=== PATIENT | male | born 1945 | race Hispanic/Latino ===

== ENCOUNTER 2018-05-20 11:02 | Inpatient (IN) | payer MEDICARE ==
[2018-05-20 13:05] LABS: BASO # 0.1 K/uL (0.0-0.2); BASO % 0.6 % (0.0-2.0); EOS # 0.9 K/uL (0.0-0.7); EOS % 10.6 % (0.0-4.0); LYMPH # 1.5 K/uL (1.0-4.3); LYMPH % 17.4 % (20.0-40.0); MEAN CELL VOLUME 83.2 fL (80.0-94.0); MEAN CORPUSCULAR HEMOGLOBIN 27.1 pg (27.0-31.0); MEAN CORPUSCULAR HGB CONC 32.6 g/dL (33.0-37.0); MEAN PLATELET VOLUME 10.1 fL (7.2-11.7); MONO # 0.7 K/uL (0.0-0.8); MONO % 7.6 % (0.0-10.0); NEUT # 5.6 K/uL (1.8-7.0); NEUT % 63.8 % (50.0-75.0); RBC 2.57 Mil/uL (4.40-5.90); RED CELL DISTRIBUTION WIDTH 15.4 % (11.5-14.5); WHITE BLOOD COUNT 8.8 K/uL (4.8-10.8)
[2018-05-20 13:13] LABS: INR 1.2; PROTHROMBIN TIME 12.8 SECONDS (9.7-12.2)
--- NOTE | 2018-05-20 13:13 | RAD ---
Date of service: 05/20/2018 PROCEDURE: CHEST RADIOGRAPH, 1 VIEW HISTORY: SOB COMPARISON: None available. FINDINGS: LUNGS: Clear. PLEURA: No pneumothorax or pleural fluid seen. CARDIOVASCULAR: No aortic atherosclerotic calcification present. Normal. OSSEOUS STRUCTURES: No significant abnormalities. VISUALIZED UPPER ABDOMEN: Normal. OTHER FINDINGS: None. IMPRESSION: No active disease.
[2018-05-20 13:32] LABS: TROPONIN I 0.034 ng/mL (0.00-0.120)
[2018-05-20 13:37] LABS: ALB/GLOB RATIO 1.2 (1.0-2.1); ALBUMIN 3.7 g/dL (3.5-5.0); CALCIUM 7.2 mg/dl (8.6-10.4)
[2018-05-20] MEDS ORDERED: Calcium Gluconate 4.65 MEQ in Dextrose 5% In Water 100 ML IV STA (14:03)
--- NOTE | 2018-05-20 14:04 | C.PDOC ---
History Of Present Illness 72 y/o M with a PMHx of CKD, Anemia, HTN presents to the ED for evaluation for hemodialysis. He was sent by Dr. Greene his nephologist on 05/08/18 but states that he wanted to wait until after thanksgiving before coming. On admission to the ED his potassium was 6.7. Surgery is currently being consulted for peramcath placement. He reports chronic back pain and LUQ pain. He denies AVELAR, fever, chills, abdominal pain, nausea, vomit, diarrhea,chest pain, SOB, Numbness, tingling,and changes in gait. PMHX: CKD, Anemia, HTN, Stroke PSHX: Abdominal surgery Social: 50 pack year smoking Hx,Denies ETOH, lives at home with aunt <Charleen Muro - Last Filed: 05/20/18 15:04> <Randolph Mathew - Last Filed: 05/20/18 14:29> History Per: Patient <Charleen Muro - Last Filed: 05/20/18 15:04> Time Seen by Provider: 05/20/18 12:42 Chief Complaint (Nursing): Medical Clearance Past Medical History Vital Signs: Last Vital Signs Temp 98.5 F 05/20/18 11:27 Pulse 76 05/20/18 12:05 Resp 18 05/20/18 12:05 BP 210/85 H 05/20/18 12:05 Pulse Ox 96 05/20/18 12:05 - Medical History PMH: Anemia, HTN Denies: Chronic Kidney Disease - Social History Hx Alcohol Use: No Hx Substance Use: No - Immunization History Hx Influenza Vaccination: Yes Hx Pneumococcal Vaccination: Yes <Randolph Mathew - Last Filed: 05/20/18 14:29> Vital Signs: Last Vital Signs Temp 98.5 F 05/20/18 11:27 Pulse 81 05/20/18 14:25 Resp 18 05/20/18 14:25 BP 220/93 H 05/20/18 14:25 Pulse Ox 96 05/20/18 14:33 - Medical History PMH: Anemia, HTN, Chronic Kidney Disease - Social History Hx Tobacco Use: Yes (50 pack year hx ) <Charleen Muro - Last Filed: 05/20/18 15:04> Review Of Systems Constitutional: Negative for: Fever, Chills Gastrointestinal: Positive for: Abdominal Pain (LUQ). Negative for: Nausea, Vomiting Genitourinary: Positive for: Frequency. Negative for: Dysuria Neurological: Negative for: Weakness, Numbness, Change in Speech <Charleen Muro - Last Filed: 05/20/18 15:04> Physical Exam - Physical Exam Appears: Well, Non-toxic, No Acute Distress Skin: Warm, Dry Head: Atraumatic, Normacephalic Eye(s): bilateral: EOMI Cardiovascular: Rhythm Regular Respiratory: Normal Breath Sounds, No Rales, No Rhonchi, No Wheezing Gastrointestinal/Abdominal: Bowel Sounds, Soft, Tenderness (LUQ) <Charleen Muro - Last Filed: 05/20/18 15:04> ED Course And Treatment - Laboratory Results Result Diagrams: 05/20/18 12:57 05/20/18 12:57 Lab Interpretation: Abnormal (chronic microcytic anemia, ESRD with elev K+ 6.7 H,) ECG: Interpreted By Me ECG Rhythm: Sinus Rhythm ECG Interpretation: Normal Rate From EC (no peaked T^'s, no slower rhythm) O2 Sat by Pulse Oximetry: 96 Pulse Ox Interpretation: Normal - Radiology CXR: Interpreted by Me CXR Interpretation: Yes: No Acute Disease Reevaluation Time: 14:30 Reassessment Condition: Improved - Physician Consult Information Outcome Of Conversation: 1400: d/w Dr. Greene, PMD, ok to consult- will d/w Dr. Estrada for admission. d/w Dr. Rocha, Vasc Surg- ok to place HD line and plan for AV fistula. <Randolph Mathew E - Last Filed: 05/20/18 14:29> - Laboratory Results Result Diagrams: 05/20/18 12:57 05/20/18 12:57 <Charleen Muro - Last Filed: 05/20/18 15:04> Medical Decision Making Medical Decision Making: m microcytic anemia chronic blood tx ESRD HD cath and start HD Dr. Greene Proof Operator/PMD Hyperkalemia Calcium Gluconate given no acute EKG changes <Randolph Mathew E - Last Filed: 05/20/18 14:29> Disposition Doctor Will See Patient In The: Hospital Counseled Patient/Family Regarding: Studies Performed, Diagnosis - Disposition Disposition Time: 14:33 <Randolph Mathew - Last Filed: 05/20/18 14:29> <Charleen Muro - Last Filed: 05/20/18 15:04> - Disposition Disposition: HOSPITALIZED Condition: FAIR Forms: [facility] ([place]) - Clinical Impression Clinical Impression: ESRD needing dialysis, Chronic anemia
[2018-05-20] MEDS ORDERED: Calcium Gluconate 4.65 mEq/10 ml Inj ONE (14:14)
[2018-05-20] MEDS ORDERED: Nitroglycerin 2% Ointment Foilpak UD TOP STA (14:25)
[2018-05-20] MEDS ORDERED: Nitroglycerin 2% Ointment Foilpak UD TOP ONE (14:58)
[2018-05-20 15:08] LABS: SQUAMOUS EPITHIAL 1 /hpf (0-5); URINE BILIRUBIN NEGATIVE (NEGATIVE); URINE BLOOD NEGATIVE (NEGATIVE); URINE CLARITY Clear (Clear); URINE COLOR Straw (YELLOW); URINE GLUCOSE (UA) NORMAL (Normal); URINE HYALINE CAST 0-2 /lpf (0-2); URINE LEUKOCYTE ESTERASE NEG Leu/uL (Negative); URINE PROTEIN 2+ mg/dL (NEGATIVE); URINE UROBILINOGEN NORMAL mg/dL (0.2-1.0)
--- NOTE | 2018-05-20 15:17 | CP.PCM.CON ---
History of Present Illness - History of Present Illness History of Present Illness: Vascular Surgery: Dr. Rocha 72 y/o M with a PMHX of HTN, CKD, and anemia, presents to the ED for evaluation to start hemodyalysis. He was sent to the ER by Dr. Greene (nephrology) on 05/08 for HD eval, but states that he did not come until now because he did not want to miss [facility]. Upon admission to the ED his potassium is 6.7. He states that he has never received dialysis before. He reports chronic back pain and LUQ pain. He currently denies Headache, fever, chest pain, SOB, Nausea, Vomit, Diarrhea,numbness, and tingling in the extremities. PMHX: CKD, HTN, Anemia CVA PSHX: Abdominal Surgery (pt unsure what surgery) Social: 50 pack year smoker, denies ETOH, lives at home with aunt RADHA Review of Systems - Review of Systems All systems: reviewed and no additional remarkable complaints except (as per HPI) - Cardiovascular Cardiovascular: absent: Chest Pain - Respiratory Respiratory: As Per HPI. absent: Cough - Gastrointestinal Gastrointestinal: As Per HPI, Abdominal Pain Additional comments: LUQ - Genitourinary Genitourinary: As Per HPI - Neurological Neurological: absent: Abnormal Gait, Abnormal Hearing, Abnormal Speech Past Patient History - Past Social History Smoking Status: Former Smoker Alcohol: None Drugs: Denies - CARDIAC Hx Hypertension: Yes - PULMONARY Hx Respiratory Disorders: No - NEUROLOGICAL Hx Neurological Disorder: Yes HX Cerebrovascular Accident: Yes (RT side weakness) - HEENT Hx HEENT Problems: No - RENAL Hx Chronic Kidney Disease: No - ENDOCRINE/METABOLIC Hx Endocrine Disorders: No - HEMATOLOGICAL/ONCOLOGICAL Hx Blood Disorders: Yes Hx Anemia: Yes - MUSCULOSKELETAL/RHEUMATOLOGICAL Hx Musculoskeletal Disorders: No - GASTROINTESTINAL Hx Gastrointestinal Disorders: No - GENITOURINARY/GYNECOLOGICAL Hx Genitourinary Disorders: No - PSYCHIATRIC Hx Psychophysiologic Disorder: No Hx Substance Use: No - SURGICAL HISTORY Hx Surgeries: No - ANESTHESIA Hx Anesthesia: Yes Meds Allergies/Adverse Reactions: Allergies Allergy/AdvReac Type Severity Reaction Status Date / Time No Known Allergies Allergy Unverified 05/20/18 11:32 Physical Exam - Constitutional Appears: Well, No Acute Distress - Head Exam Head Exam: ATRAUMATIC, NORMOCEPHALIC - Eye Exam Eye Exam: EOMI - ENT Exam ENT Exam: Mucous Membranes Moist - Respiratory Exam Respiratory Exam: Clear to Auscultation Bilateral, NORMAL BREATHING PATTERN - Cardiovascular Exam Cardiovascular Exam: REGULAR RHYTHM, +S1, +S2 - GI/Abdominal Exam GI & Abdominal Exam: Normal Bowel Sounds, Soft - Extremities Exam Extremities exam: Positive for: pedal edema - Neurological Exam Neurological exam: Alert, Oriented x3 - Skin Skin Exam: Dry, Warm Results - Vital Signs Recent Vital Signs: Last Vital Signs Temp 98.5 F 05/20/18 11:27 Pulse 81 05/20/18 14:25 Resp 18 05/20/18 14:25 BP 220/93 H 05/20/18 14:25 Pulse Ox 98 05/20/18 14:25 - Labs Result Diagrams: 05/20/18 12:57 05/20/18 12:57 Labs: Laboratory Results - last 24 hr 05/20/18 05/20/18 05/20/18 12:57 12:57 12:57 WBC 8.8 RBC 2.57 L Hgb 7.0 L Hct 21.4 L MCV 83.2 MCH 27.1 MCHC 32.6 L RDW 15.4 H Plt Count 181 MPV 10.1 Neut % (Auto) 63.8 Lymph % (Auto) 17.4 L Power % (Auto) 7.6 Eos % (Auto) 10.6 H Baso % (Auto) 0.6 Neut # (Auto) 5.6 Lymph # (Auto) 1.5 Power # (Auto) 0.7 Eos # (Auto) 0.9 H Baso # (Auto) 0.1 PT 12.8 H INR 1.2 APTT 35 H Sodium 140 Potassium 6.7 H* Chloride 109 H Carbon Dioxide 17 L Anion Gap 21 H BUN 87 H Creatinine 9.6 H* Est GFR ( Amer) 7 Est GFR (Non-Af Amer) 5 Random Glucose 106 Calcium 7.2 L Total Bilirubin 0.4 AST 12 L ALT 17 L Alkaline Phosphatase 51 Troponin I 0.0340 NT-Pro-B Natriuret Pep 51958 H Total Protein 6.8 Albumin 3.7 Globulin 3.1 Albumin/Globulin Ratio 1.2 Urine Color Urine Clarity Urine pH Ur Specific [place] Urine Protein Urine Glucose (UA) Urine Ketones Urine Blood Urine Nitrate Urine Bilirubin Urine Urobilinogen Ur Leukocyte Esterase Urine WBC (Auto) Urine RBC (Auto) Ur Squamous Epith Cells Hyaline Casts Blood Type Blood Type Confirm Antibody Screen 05/20/18 05/20/18 13:15 15:00 WBC RBC Hgb Hct MCV MCH MCHC RDW Plt Count MPV Neut % (Auto) Lymph % (Auto) Power % (Auto) Eos % (Auto) Baso % (Auto) Neut # (Auto) Lymph # (Auto) Power # (Auto) Eos # (Auto) Baso # (Auto) PT INR APTT Sodium Potassium Chloride Carbon Dioxide Anion Gap BUN Creatinine Est GFR ( Amer) Est GFR (Non-Af Amer) Random Glucose Calcium Total Bilirubin AST ALT Alkaline Phosphatase Troponin I NT-Pro-B Natriuret Pep Total Protein Albumin Globulin Albumin/Globulin Ratio Urine Color Straw Urine Clarity Clear Urine pH 7.0 Ur Specific [place] 1.011 Urine Protein 2+ H Urine Glucose (UA) Normal Urine Ketones Negative Urine Blood Negative Urine Nitrate Negative Urine Bilirubin Negative Urine Urobilinogen Normal Ur Leukocyte Esterase Neg Urine WBC (Auto) < 1 Urine RBC (Auto) < 1 Ur Squamous Epith Cells 1 Hyaline Casts 0-2 Blood Type A POSITIVE Blood Type Confirm A POSITIVE Antibody Screen Negative Assessment & Plan - Assessment and Plan (Free Text) Assessment: 72M with CKD, for permacath eval for HD Plan: - OR for permacath - keep NPO - d/w Dr. Aj Muro
[2018-05-20] MEDS ORDERED: Dextrose 50% SYRINGE Inj (50 ml) IVP STA (15:38)
[2018-05-20] MEDS ORDERED: (Novolin R) Insulin Human Regular 100 units/ml vial IVP ONE (15:38)
[2018-05-20] MEDS ORDERED: (Novolin R) Insulin Human Regular 100 units/ml vial ONE (15:40)
[2018-05-20] MEDS ORDERED: ceFAZolin IV 1 gm in Dextrose 2 GM/100 ML BAG IVPB ONE (15:40)
[2018-05-20] MEDS ORDERED: Lidocaine Hydrochloride 10 ML INJ ONE (15:41)
[2018-05-20] MEDS ORDERED: HEPARIN-NS 5,000 UNITS/500 ML 5,000 UNIT/500 ML BAG IV ONE (15:41)
[2018-05-20] MEDS ORDERED: Dextrose 50% SYRINGE Inj (50 ml) ONE (15:41)
--- NOTE | 2018-05-20 15:53 | C.PDOC ---
History Of Present Illness 72 y/o Male with a PMHX of HTN, CKD, and severe anemia, was sent to the ER by Dr. Greene (nephrology) on 05/08 for hemodyalysis evaluation, but states that he did not come until now because he did not want to miss [facility]. Patient present today with complaints of chronic weakness and lethargy. Patient also has poor gait. Patient lives with his aunt that takes care of him. He currently denies Headache, fever, chest pain, SOB, Nausea, Vomit, Diarrhea,numbness, and tingling in the extremities. Time Seen by Provider: 05/20/18 12:42 Chief Complaint (Nursing): Medical Clearance History Per: Patient History/Exam Limitations: no limitations Onset/Duration Of Symptoms: Days Current Symptoms Are (Timing): Still Present Recent travel outside of the [place]: No Past Medical History Reviewed: Historical Data, Nursing Documentation, Vital Signs Vital Signs: Last Vital Signs Temp 98.5 F 05/20/18 11:27 Pulse 93 H 05/20/18 15:18 Resp 20 05/20/18 15:18 BP 183/84 H 05/20/18 15:18 Pulse Ox 94 L 05/20/18 15:18 - Medical History PMH: Anemia, HTN Family History: States: No Known Family Hx - Social History Hx Alcohol Use: No Hx Substance Use: No - Immunization History Hx Influenza Vaccination: Yes Hx Pneumococcal Vaccination: Yes Review Of Systems Constitutional: Negative for: Fever, Chills Gastrointestinal: Negative for: Nausea, Vomiting, Diarrhea Skin: Negative for: Rash Neurological: Positive for: Weakness. Negative for: Numbness, Headache Physical Exam - Physical Exam Appears: Non-toxic, No Acute Distress, Other (Pale. Pallid. ) Skin: Warm, Dry, No Rash Head: Atraumatic, Normacephalic Eye(s): bilateral: Conjunctiva Pale (Pallor ) Oral Mucosa: Moist Neck: Normal ROM, Supple Chest: Symmetrical, No Tenderness Cardiovascular: Rhythm Regular, No Murmur Respiratory: Normal Breath Sounds, No Rales, No Rhonchi, No Wheezing Gastrointestinal/Abdominal: Bowel Sounds (Active ), Soft, No Tenderness, No Distention, No Guarding Extremity: Normal ROM, Pedal Edema (2/4 pitting edema ) Extremity: Bilateral: Normal Color And Temperature, Normal ROM Pulses: Left Radial: Normal, Right Radial: Normal Neurological/Psych: Oriented x3, Normal Speech Gait: Unsteady ED Course And Treatment - Laboratory Results Result Diagrams: 05/24/18 06:23 05/24/18 06:24 O2 Sat by Pulse Oximetry: 94 (RA) Pulse Ox Interpretation: Normal - Other Rad CXR X-Ray: Viewed By Me, Read By Radiologist Interpretation: IMPRESSION: No active disease. Medical Decision Making Medical Decision Making: Plan: * IV Fluid * Nitroglycerin * Blood bank * Blood work * EKG * CXR Disposition Doctor Will See Patient In The: Hospital Counseled Patient/Family Regarding: Studies Performed, Diagnosis - Disposition Disposition: HOSPITALIZED Disposition Time: 16:00 Condition: FAIR - Clinical Impression Clinical Impression: ESRD needing dialysis, Chronic anemia - Scribe Statement The provider has reviewed the documentation as recorded by the Gayatri Arboleda All medical record entries made by the Taliaibheather were at my direction and personally dictated by me. I have reviewed the chart and agree that the record accurately reflects my personal performance of the history, physical exam, medical decision making, and the department course for this patient. I have also personally directed, reviewed, and agree with the discharge instructions and disposition.
[2018-05-20] MEDS ORDERED: Labetalol 5mg/ml (4ml) IVP PRN ×2 (16:47→19:53)
--- NOTE | 2018-05-20 16:49 | PCM.SURG1 ---
Surgeon's Initial Post Op Note - Surgeon's Notes Surgeon: Dr. Rocha Merchandise Handler: Brandy Astorga, PGY2 Type of Anesthesia: Local Pre-Operative Diagnosis: renal failure, hyperkalemia Operative Findings: normal anatomy, catheter in the appropriate position as seen by fluoroscopy at the end of the case Post-Operative Diagnosis: same Operation Performed: Right internal jugular permacath placement Specimen/Specimens Removed: none Estimated Blood Loss: EBL {In ML}: 20 Blood Products Given: N/A Drains Used: No Drains Post-Op Condition: Fair Date of Surgery/Procedure: 05/20/18 Time of Surgery/Procedure: 16:00
--- NOTE | 2018-05-20 17:17 | RAD ---
Date of service: 05/20/2018 PROCEDURE: Intraoperative Fluoroscopy. HISTORY: RENAL FAILURE FINDINGS: Fluoroscopic assistance was provided. Fluoroscopy time = 22.1 sec. Radiation dose = 0.15022 mGy-cm.. Show please refer to the operative report from MALIK Ramirez.
--- NOTE | 2018-05-20 18:13 | CP.PCM.CON ---
History of Present Illness - History of Present Illness History of Present Illness: REASONS FOR CONSULT : ADVANCED CKD PROCEEDING TO ESRD ELECTROLYTES ABN WITH SEVERE HYPERKALEMIA ANEMIA OF CKD .. RECIEVED [facility] AN OUT PT IN MY OFFICE PT IS WELL KNOWN TO ME FOR MANY MANY YEARS WITH CKD THOUGHT TO BE SECONDARY TO HTN NEPHROSCLEROSIS .. PT HAD MAJR CVA MANY YEARS AGO 2/2 UNCONTROLED HTN PT INITIALY DID NOT HAVE INSURANCE .. HE WAS NON COMPLAINT 2/2 THAT BUT ALSO HE DISSAPEARED FROM MEDICAL F/U TILL APPROXIMATELY 6 MONTH AGO WHERE HE APPEARED AGAIN AND WAS BEING F/U Q 3 MONTHS HIS BP WAS ALWAYS HIGH .. CKD HAS BEEN WITH PT FOR MANY YEARS .. RECENTLY APROACHING ESRD IT TOK ME A WHILE TO CONVINCE THE PT TO GO ON HD 2/2 ADVANCED CKD WELL HYPERKALEMIA PT FINALY CAME TO THE ER TO START ON HD 72 y/o M with a PMHX of HTN, CKD, and anemia, presents to the ED for evaluation to start hemodyalysis.. Upon admission to the ED his potassium is 6.7. He states that he has never received dialysis before. He reports chronic back pain and LUQ pain. He currently denies Headache, fever, chest pain, SOB, Nausea, Vomit, Diarrhea,numbness, and tingling in the extremities. PMHX: CKD, HTN, Anemia CVA PSHX: Abdominal Surgery (pt unsure what surgery) Social: 50 pack year smoker, denies ETOH, lives at home with aunt NKDA Review of Systems - Review of Systems All systems: reviewed and no additional remarkable complaints except (as per HPI) - Cardiovascular Cardiovascular: absent: Chest Pain - Respiratory Respiratory: As Per HPI. absent: Cough - Gastrointestinal Gastrointestinal: As Per HPI, Abdominal Pain Additional comments: LUQ - Genitourinary Genitourinary: As Per HPI - Neurological Neurological: absent: Abnormal Gait, Abnormal Hearing, Abnormal Speech Past Patient History - Past Social History Smoking Status: Former Smoker Alcohol: None Drugs: Denies - CARDIAC Hx Hypertension: Yes - PULMONARY Hx Respiratory Disorders: No - NEUROLOGICAL Hx Neurological Disorder: Yes HX Cerebrovascular Accident: Yes (RT side weakness) - HEENT Hx HEENT Problems: No - RENAL Hx Chronic Kidney Disease: No - ENDOCRINE/METABOLIC Hx Endocrine Disorders: No - HEMATOLOGICAL/ONCOLOGICAL Hx Blood Disorders: Yes Hx Anemia: Yes - MUSCULOSKELETAL/RHEUMATOLOGICAL Hx Musculoskeletal Disorders: No - GASTROINTESTINAL Hx Gastrointestinal Disorders: No - GENITOURINARY/GYNECOLOGICAL Hx Genitourinary Disorders: No - PSYCHIATRIC Hx Psychophysiologic Disorder: No Hx Substance Use: No - SURGICAL HISTORY Hx Surgeries: No - ANESTHESIA Hx Anesthesia: Yes Meds Allergies/Adverse Reactions: Allergies Allergy/AdvReac Type Severity Reaction Status Date / Time No Known Allergies Allergy Unverified 05/20/18 11:32 Past Patient History - Past Social History Smoking Status: Former Smoker Alcohol: None Drugs: Denies - CARDIAC Hx Hypertension: Yes - PULMONARY Hx Respiratory Disorders: No - NEUROLOGICAL Hx Neurological Disorder: Yes HX Cerebrovascular Accident: Yes (RT side weakness) - HEENT Hx HEENT Problems: No - RENAL Hx Chronic Kidney Disease: No - ENDOCRINE/METABOLIC Hx Endocrine Disorders: No - HEMATOLOGICAL/ONCOLOGICAL Hx Anemia: Yes - MUSCULOSKELETAL/RHEUMATOLOGICAL Hx Musculoskeletal Disorders: No - GASTROINTESTINAL Hx Gastrointestinal Disorders: No - GENITOURINARY/GYNECOLOGICAL Hx Genitourinary Disorders: No - PSYCHIATRIC Hx Substance Use: No - SURGICAL HISTORY Hx Surgeries: No - ANESTHESIA Hx Anesthesia: Yes Meds Allergies/Adverse Reactions: Allergies Allergy/AdvReac Type Severity Reaction Status Date / Time No Known Allergies Allergy Unverified 05/20/18 11:32 - Medications Medications: Current Medications Labetalol HCl (Trandate) 5 mg IVP Q5M PRN PRN Reason: Systolic Blood Pressure Stop: 05/20/18 18:48 Results - Vital Signs Recent Vital Signs: Last Vital Signs Temp 99 F 05/20/18 16:45 Pulse 76 05/20/18 16:45 Resp 20 05/20/18 16:45 BP 168/79 H 05/20/18 16:45 Pulse Ox 95 05/20/18 16:45 - Labs Result Diagrams: 05/20/18 12:57 05/20/18 12:57 Labs: Laboratory Results - last 24 hr 05/20/18 05/20/18 05/20/18 12:57 12:57 12:57 WBC 8.8 RBC 2.57 L Hgb 7.0 L Hct 21.4 L MCV 83.2 MCH 27.1 MCHC 32.6 L RDW 15.4 H Plt Count 181 MPV 10.1 Neut % (Auto) 63.8 Lymph % (Auto) 17.4 L [place] % (Auto) 7.6 Eos % (Auto) 10.6 H Baso % (Auto) 0.6 Neut # (Auto) 5.6 Lymph # (Auto) 1.5 [place] # (Auto) 0.7 Eos # (Auto) 0.9 H Baso # (Auto) 0.1 PT 12.8 H INR 1.2 APTT 35 H Sodium 140 Potassium 6.7 H* Chloride 109 H Carbon Dioxide 17 L Anion Gap 21 H BUN 87 H Creatinine 9.6 H* Est GFR ( Amer) 7 Est GFR (Non-Af Amer) 5 Random Glucose 106 Calcium 7.2 L Total Bilirubin 0.4 AST 12 L ALT 17 L Alkaline Phosphatase 51 Troponin I 0.0340 NT-Pro-B Natriuret Pep 88772 H Total Protein 6.8 Albumin 3.7 Globulin 3.1 Albumin/Globulin Ratio 1.2 Urine Color Urine Clarity Urine pH Ur Specific [place] Urine Protein Urine Glucose (UA) Urine Ketones Urine Blood Urine Nitrate Urine Bilirubin Urine Urobilinogen Ur Leukocyte Esterase Urine WBC (Auto) Urine RBC (Auto) Ur Squamous Epith Cells Hyaline Casts Blood Type Blood Type Confirm Antibody Screen 05/20/18 05/20/18 13:15 15:00 WBC RBC Hgb Hct MCV MCH MCHC RDW Plt Count MPV Neut % (Auto) Lymph % (Auto) [place] % (Auto) Eos % (Auto) Baso % (Auto) Neut # (Auto) Lymph # (Auto) [place] # (Auto) Eos # (Auto) Baso # (Auto) PT INR APTT Sodium Potassium Chloride Carbon Dioxide Anion Gap BUN Creatinine Est GFR ( Amer) Est GFR (Non-Af Amer) Random Glucose Calcium Total Bilirubin AST ALT Alkaline Phosphatase Troponin I NT-Pro-B Natriuret Pep Total Protein Albumin Globulin Albumin/Globulin Ratio Urine Color Straw Urine Clarity Clear Urine pH 7.0 Ur Specific [place] 1.011 Urine Protein 2+ H Urine Glucose (UA) Normal Urine Ketones Negative Urine Blood Negative Urine Nitrate Negative Urine Bilirubin Negative Urine Urobilinogen Normal Ur Leukocyte Esterase Neg Urine WBC (Auto) < 1 Urine RBC (Auto) < 1 Ur Squamous Epith Cells 1 Hyaline Casts 0-2 Blood Type A POSITIVE Blood Type Confirm A POSITIVE Antibody Screen Negative Assessment & Plan - Assessment and Plan (Free Text) Assessment: ADVANCED CKD PROCEEDING TO ESRD .. IN NEED FOR HD HYPERKALEMIA 2/2 ABOVE .. NO ECG CHANGES MET ACIDOSIS 2/2 1 ANEMIA OF CKD .. PROBABLY NEEDS TRANSFUSION HTN .. UNCONTROLED CVA WITH L SIDED WEAKNESS 2/2 UNCONTROLED HTN HYPERLIPEDEMIA HYPERURECEMIA P : DR SHEN FOR A TUNNELED CATH AND AVF WILL START HD CRISTI EWNAL DIET 2 G NA .. 2 G K .. 100 G PROTIEN .. 1.5 CC FR CHECK PHOS .. MAG .. VIT D 25 .. PTH .. UA C/O CURRENT MEDS S W T O SEE PT FOR OUT PT HD SPOT THANK Allyson MARRERO F/U CLOSELY - Date & Time Date: 05/20/18 Time: 16:00
--- NOTE | 2018-05-20 18:25 | RAD ---
Date of service: 05/20/2018 HISTORY: s/p RIJ permacath insertion COMPARISON: May 20, 2018 12:59. FINDINGS: LUNGS: No active pulmonary disease. PLEURA: No significant pleural effusion identified, no pneumothorax apparent. CARDIOVASCULAR: No atherosclerotic calcification present Stable cardiomegaly. Venous access catheter in satisfactory position. Catheter inserted via right internal jugular approach. OSSEOUS STRUCTURES: No significant abnormalities. VISUALIZED UPPER ABDOMEN: Normal. OTHER FINDINGS: None. IMPRESSION: Satisfactory position of recently placed PermCath. No pneumothorax identified.
[2018-05-20] MEDS ORDERED: Labetalol 25mg/5ml Syringe ONE (20:01)
[2018-05-20] MEDS ORDERED: Sod Polystyrene Sulf 15 gm/60 ml Susp PO ONE (22:28)
[2018-05-20 23:05] LABS: URIC ACID 6.5 mg/dL (3.5-8.5)
[2018-05-21] MEDS ORDERED: Metoprolol 1 mg/ml Inj IVP ONE (01:17)
--- NOTE | 2018-05-21 01:28 | HP ---
HISTORY OF PRESENT ILLNESS: This is a 72-year-old male with history of multiple medical problems including chronic kidney disease, hypertension, and severe anemia, was sent by Dr. Greene to emergency room since 05/08/2018, about 10 days ago. The patient did not show up in the emergency room until the day of admission, 05/20/2018. The patient stated that he wanted to spend the with his family. The patient has been complaining of generalized weakness, easy fatigability and lethargy with unsteadiness and poor appetite. The patient lives with his aunt and they take care of him also. He currently denies any symptoms of fever or chest pain. Positive exertional shortness of breath. No nausea, no vomiting, no diarrhea. REVIEW OF SYSTEM: Other review of systems are negative. ALLERGIES: NO KNOWN ALLERGY. HOME MEDICATIONS: Reviewed and ordered as per MAR. SOCIAL HISTORY: No history of smoking, EtOH, or substance abuse. FAMILY HISTORY: Not contributory. PAST MEDICAL HISTORY: Hypertension, vitamin D deficiency, anemia, chronic kidney disease. PHYSICAL EXAMINATION: GENERAL: The patient was in bed, not in any cardiopulmonary distress. VITAL SIGNS: Blood pressure 160/67, temperature 98.2, respiratory rate 20, and pulse 78. HEENT: Pale mucosa of the conjunctivae. Pupils equal, and reactive to light. Normal-appearing mucosa of the conjunctivae, oropharynx, and nasal membrane mucosa. NECK: Supple. No JVD. No carotid bruit. No lymph node. No thyromegaly. CHEST AND LUNGS: Bilateral symmetrical expansion. Good air exchange. No rales, no rhonchi. CARDIOVASCULAR SYSTEM: PMI not localized. S1, S2. No additional sounds. ABDOMEN: Normoactive bowel sounds. No tenderness. No organomegaly. No masses. EXTREMITIES: No cyanosis, no clubbing, no edema. CENTRAL NERVOUS SYSTEM: Alert, awake, and oriented x2 and no neurological deficits could be appreciated. LABORATORY DATA: Blood work done in emergency room showed potassium of 6.7, BUN 87, creatinine 9.6, hemoglobin 7, and hematocrit 21.4. ASSESSMENT: End-stage renal disease, hyperkalemia, and anemia of chronic disease. PLAN: The patient was given 10 units of insulin as well as dextrose 50. Vascular Surgery consult for tunneled catheter placement and start hemodialysis as per Nephrology consult. We will resume the patient's antihypertensive medications and we will transfuse if hemoglobin will further drop as per tractor operator battery. Carmella Estrada MD
--- NOTE | 2018-05-21 02:38 | OP ---
PROCEDURE DATE: 05/20/2018 PREOPERATIVE DIAGNOSIS: Renal failure. POSTOPERATIVE DIAGNOSIS: Renal failure. PROCEDURE CARRIED OUT: Permacath right jugular vein with C-arm fluoroscopy, ultrasound-guided puncture, and micropuncture technique. SURGEON: Tj Rocha Jr., MD CRITICAL POWER TECHNICIAN: Brandy Astorga DO ANESTHESIOLOGIST: Dr. Roche. TYPE OF ANESTHESIA: Local with sedation. INDICATION FOR PROCEDURE: A 72-year-old man, admitted with elevated BUN and creatinine, potassium, requires urgent/emergency dialysis. OPERATIVE FINDINGS: Catheter was inserted uneventfully via the jugular vein. DESCRIPTION OF PROCEDURE: The patient was given local anesthesia using ultrasound guidance and micropuncture technique. The right jugular vein was cannulated. Under fluoroscopic control, an wire was passed centrally, this was subsequently exchanged for an 0.035 wire. The catheter sheath dilator was then passed, originating on the right chest wall, going through the jugular vein and terminating at the superior vena cava. It was flushed with heparinized saline with good return. It was sutured to the skin with sutures. It was tunneled on the right chest wall. Blood loss during the procedure was less than 25 mL. Operation carried out is Permacath right jugular vein with C-arm fluoroscopy, ultrasound guided puncture and micropuncture technique. Ultrasound images of neck showed that the vein was approximately 16 mm in diameter with normal compressibility and no intraluminal thrombosis. Tj Rocha Jr., MD
[2018-05-21] MEDS: Multivitamin Vitamin B Complex (Nephro-Vite) Tab PO SCH (07:48)
[2018-05-21 09:59] LABS: HEMOGLOBIN 7.2 g/dL (12.0-18.0); MEAN CELL VOLUME 83.6 fL (80.0-94.0); MEAN CORPUSCULAR HEMOGLOBIN 27.2 pg (27.0-31.0); MEAN CORPUSCULAR HGB CONC 32.5 g/dL (33.0-37.0); MEAN PLATELET VOLUME 9.3 fL (7.2-11.7); RBC 2.65 Mil/uL (4.40-5.90); RED CELL DISTRIBUTION WIDTH 15.5 % (11.5-14.5); WHITE BLOOD COUNT 8.3 K/uL (4.8-10.8)
[2018-05-21] MEDS ORDERED: ICOSAPENT ETHYL 0.5 GM PO SCH (10:00)
[2018-05-21] MEDS ORDERED: OMEPRAZOLE MAGNESIUM 20 MG PO SCH (10:00)
[2018-05-21 10:30] LABS: CALCIUM 7.3 mg/dl (8.6-10.4)
[2018-05-21] MEDS: Omega-3-Acid Ethyl Esters 1 GM Cap PO SCH (12:52)
[2018-05-21] MEDS: Ergocalciferol 50,000 Intl Units Cap PO SCH (12:52)
[2018-05-21] MEDS: Pantoprazole 40 mg EC Tab PO SCH (12:53)
[2018-05-21] MEDS: Magnesium Oxide 400 mg Tab UD PO SCH (12:53)
--- NOTE | 2018-05-21 15:20 | CP.PCM.PN ---
Subjective - Date & Time of Evaluation Date of Evaluation: 05/21/18 Time of Evaluation: 07:30 - Subjective Subjective: Surgery progress note for Dr. Rocha Pt seen and examined this AM. No adverse events overnight. Patient underwent permacath last night without event. Patient denies any chest pain, SOB, or nausea and dizziness, though he complains about some itching at the site Objective - Vital Signs/Intake and Output Vital Signs (last 24 hours): Temp Pulse Resp BP Pulse Ox 98.4 F 73 20 176/79 H 96 05/21/18 14:00 05/21/18 14:45 05/21/18 14:45 05/21/18 14:45 05/21/18 07:30 Intake and Output: 05/21/18 05/21/18 06:59 18:59 Output Total 650 Balance -650 - Medications Medications: Current Medications Acetaminophen (Tylenol 325mg Tab) 650 mg PO [facility] Last Admin: 05/21/18 12:54 Dose: Not Given Calcium Acetate (Phoslo) 667 mg PO QPM [facility] Doxazosin Mesylate (Cardura) 2 mg PO [facility] Last Admin: 05/21/18 12:52 Dose: Not Given Epoetin Popeye (Procrit) 10,000 unit IV MWF [facility] Ergocalciferol (Drisdol 50,000 Intl Units Cap) 1 cap PO QWK [facility] Last Admin: 05/21/18 12:52 Dose: Not Given Home Med (Chromium Amino Acid Chelate [Chromium]) 200 mg PO QPM [facility] Home Med (Fenugreek Seed/Bl.Thistle/Anis [Milkflow Capsule]) 400 mg PO QPM [facility] Home Med (Ferrous Sulfate [Slow Release Iron]) 45 mg PO QAM [facility] Home Med (Garlic [Garlic Oil]) 500 mg PO QPM [facility] Home Med (Icosapent Ethyl [Vascepa]) 0.5 gm PO QAM [facility] Hydrochlorothiazide (Hydrodiuril) 25 mg PO [facility] Last Admin: 05/21/18 12:52 Dose: Not Given Ibuprofen (Motrin Tab) 400 mg PO [facility] Last Admin: 05/21/18 12:53 Dose: Not Given Labetalol HCl (Trandate) 200 mg PO BID [facility] Last Admin: 05/21/18 12:54 Dose: Not Given Magnesium Oxide (Mag-Ox) 400 mg PO QAM [facility] Last Admin: 05/21/18 12:53 Dose: Not Given Minoxidil (Minoxidil) [facility] [place] Kcfuj-0-Unih Ethyl Esters (Lovaza) 1 gm PO QAM [facility] Last Admin: 05/21/18 12:52 Dose: Not Given Pantoprazole Sodium (Protonix Ec Tab) 40 mg PO DAILY [facility] Last Admin: 05/21/18 12:53 Dose: Not Given Sevelamer Carbonate (Renvela) 1,600 mg PO TIDCC [facility] Last Admin: 05/21/18 12:53 Dose: Not Given Tramadol HCl (Ultram) 50 mg PO QAM [facility] Last Admin: 05/21/18 12:54 Dose: Not Given Vitamin B Complex/Vit C/Folic Acid (Nephro-Nehemias) 1 tab PO 0800 [facility] Last Admin: 05/21/18 07:48 Dose: 1 tab - Labs Labs: 05/21/18 09:42 05/21/18 09:42 PT 12.8 SECONDS (9.7-12.2) H 05/20/18 12:57 INR 1.2 05/20/18 12:57 APTT 35 SECONDS (21-34) H 05/20/18 12:57 - Constitutional Appears: Well, Non-toxic, No Acute Distress - Head Exam Head Exam: ATRAUMATIC, NORMOCEPHALIC - Eye Exam Eye Exam: Normal appearance. absent: Conjunctival injection, Scleral icterus - ENT Exam ENT Exam: Mucous Membranes Moist, Normal Oropharynx - Neck Exam Additional comments: Permacath in place at the PRJ, no surrounding swelling, bleeding, or ecchymosis - Respiratory Exam Respiratory Exam: NORMAL BREATHING PATTERN. absent: Accessory Muscle Use, Respiratory Distress - Cardiovascular Exam Cardiovascular Exam: RRR - Extremities Exam Extremities Exam: absent: Calf Tenderness, Pedal Edema, Tenderness - Neurological Exam Neurological Exam: Alert, Awake, Oriented x3 - Psychiatric Exam Psychiatric exam: Normal Affect, Normal Mood - Skin Skin Exam: Dry, Normal Color, Warm Assessment and Plan - Assessment and Plan (Free Text) Assessment: 72M POD#1 s/p permacath insertion right IJ Plan: AVF planning for Sunday F/U vein mapping Ok to use permacath for HD Transfuse as needed No eliquis or plavix Discussed with Dr. Rocha, who agrees with above Brandy Astorga, PGY2
--- NOTE | 2018-05-21 17:12 | CARD ---
APPROVED REPORT Date of service: 05/20/2018 EKG Measurement Heart [id number] <Conclusion> Normal sinus rhythm Possible Left atrial enlargement Incomplete left bundle branch block Left ventricular hypertrophy with repolarization abnormality Abnormal ECG
[2018-05-21] MEDS ORDERED: [UNRECOGNIZED DRUG - OTHER] PO SCH (18:00)
[2018-05-21] MEDS ORDERED: GARLIC 500 MG PO SCH (18:00)
--- NOTE | 2018-05-21 18:15 | CP.PCM.PN ---
Subjective - Date & Time of Evaluation Date of Evaluation: 05/21/18 Time of Evaluation: 13:00 - Subjective Subjective: SEEN ON RENAL F/U IN THE HD ROOM HD IS STARTING .. CONSENT OBTAINED HD ORDERS GIVEN TO HD - RN PT APPEARS IN GOOD SPIRIT .. BP IS GOOD ALL LABS REVIEWED .. ALL PREVIOUS EMR REVIEWED Objective - Vital Signs/Intake and Output Vital Signs (last 24 hours): Temp Pulse Resp BP Pulse Ox 98 F 81 20 211/92 H 95 05/21/18 16:30 05/21/18 17:37 05/21/18 17:37 05/21/18 17:37 05/21/18 16:30 Intake and Output: 05/21/18 05/21/18 06:59 18:59 Intake Total 345 Output Total 650 Balance -650 345 - Medications Medications: Current Medications Acetaminophen (Tylenol 325mg Tab) [facility] Last Admin: 05/21/18 12:54 Dose: Not Given Calcium Acetate (Phoslo) 667 mg PO QPM [facility] Last Admin: 05/21/18 17:57 Dose: 667 mg Doxazosin Mesylate (Cardura) 2 mg PO [facility] Last Admin: 05/21/18 12:52 Dose: Not Given Epoetin Popeye (Procrit) 10,000 unit IV MWF [facility] Ergocalciferol (Drisdol 50,000 Intl Units Cap) 1 cap PO QWK [facility] Last Admin: 05/21/18 12:52 Dose: Not Given Home Med (Chromium Amino Acid Chelate [Chromium]) 200 mg PO QPM [facility] Home Med (Fenugreek Seed/Bl.Thistle/Anis [Milkflow Capsule]) 400 mg PO QPM [facility] Home Med (Ferrous Sulfate [Slow Release Iron]) 45 mg PO QAM [facility] Home Med (Garlic [Garlic Oil]) 500 mg PO QPM [facility] Home Med (Icosapent Ethyl [Vascepa]) 0.5 gm PO QAM [facility] Hydrochlorothiazide (Hydrodiuril) 25 mg PO [facility] Last Admin: 05/21/18 12:52 Dose: Not Given Ibuprofen (Motrin Tab) 400 mg [facility] [place] Last Admin: 05/21/18 12:53 Dose: Not Given Labetalol HCl (Trandate) 200 mg PO BID [facility] Last Admin: 05/21/18 17:58 Dose: 200 mg Magnesium Oxide (Mag-Ox) 400 mg PO QAM [facility] Last Admin: 05/21/18 12:53 Dose: Not Given Minoxidil (Minoxidil) 2.5 mg PO QAM [facility] Goetr-7-Fipz Ethyl Esters (Lovaza) 1 gm PO QAM [facility] Last Admin: 05/21/18 12:52 Dose: Not Given Pantoprazole Sodium (Protonix Ec Tab) 40 mg PO DAILY [facility] Last Admin: 05/21/18 12:53 Dose: Not Given Sevelamer Carbonate (Renvela) 1,600 mg PO TIDCC [facility] Last Admin: 05/21/18 17:56 Dose: 1,600 mg Tramadol HCl (Ultram) 50 mg PO QAM [facility] Last Admin: 05/21/18 12:54 Dose: Not Given Vitamin B Complex/Vit C/Folic Acid (Nephro-Nehemias) 1 tab PO 0800 [facility] Last Admin: 05/21/18 07:48 Dose: 1 tab - Labs Labs: 05/21/18 09:42 05/21/18 09:42 PT 12.8 SECONDS (9.7-12.2) H 05/20/18 12:57 INR 1.2 05/20/18 12:57 APTT 35 SECONDS (21-34) H 05/20/18 12:57 Assessment and Plan - Assessment and Plan (Free Text) Assessment: ESRD .. ON HIS FIRST HD RIGHT NOW .. WILL RECIEVE ONE UNIT PRBC ON HD TODAY NEXT HD TOMORROW AND THEN M W F ANEMIA OF CKD ..RECIEVING 1 U PRBC ON HD TODAY SEVERE ELECTROLYTES ABN .. HYPERKALEMIA .. HD IS STARTING NOW HTN .. BETTER CONTROLED HYPER LEPIDIMIA .. 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 FOR AVF ON SUN P ; CASE D/W DR FLORENCE .. FOR AVF ON SUN C/O CURRENT MEDS SW TO FAX PAPERS FOR OUT PT HD SPOT C/O PRESENT CARE
--- NOTE | 2018-05-22 01:26 | PN ---
DATE: 05/21/2018 SUBJECTIVE: The patient is seen today, 05/21/2018. He is status post hemodialysis. OBJECTIVE: VITAL SIGNS: Blood pressure is 178/82, temperature 98.3, respiratory rate 20, and pulse 78. HEENT: Pale mucosa of the conjunctivae. NECK: Supple. No JVD. No carotid bruit. No lymph node. No thyromegaly. CHEST AND LUNGS: Bilateral symmetrical expansion. Good air exchange. No rales, no rhonchi. CARDIOVASCULAR SYSTEM: PMI not localized. S1, S2. No additional sounds. ABDOMEN: Normoactive bowel sounds. No tenderness. No organomegaly. No masses. EXTREMITIES: No cyanosis, no clubbing, no edema. CENTRAL NERVOUS SYSTEM: Alert, awake, oriented x2. No neurological deficit could be appreciated. ASSESSMENT: 1. End-stage renal disease, started on hemodialysis. 2. Hyperkalemia. 3. Hypertension. 4. Anemia of chronic disease. PLAN: Monitor the potassium and hemoglobin and hematocrit and transfuse if it is needed. Follow Nephrology recommendations, antihypertensive medications. Carmella Estrada MD
[2018-05-22 07:01] LABS: HEMOGLOBIN 7.7 g/dL (12.0-18.0); MEAN CELL VOLUME 82.7 fL (80.0-94.0); MEAN CORPUSCULAR HEMOGLOBIN 27.5 pg (27.0-31.0); MEAN CORPUSCULAR HGB CONC 33.3 g/dL (33.0-37.0); MEAN PLATELET VOLUME 9.7 fL (7.2-11.7); RBC 2.81 Mil/uL (4.40-5.90); RED CELL DISTRIBUTION WIDTH 14.9 % (11.5-14.5); WHITE BLOOD COUNT 7.2 K/uL (4.8-10.8)
[2018-05-22 08:08] LABS: ALB/GLOB RATIO 1.1 (1.0-2.1); ALBUMIN 3.3 g/dL (3.5-5.0); CALCIUM 7.1 mg/dl (8.6-10.4)
[2018-05-22] MEDS: Multivitamin Vitamin B Complex (Nephro-Vite) Tab PO SCH (08:53)
[2018-05-22] MEDS: Magnesium Oxide 400 mg Tab UD PO SCH (10:02)
[2018-05-22] MEDS: Pantoprazole 40 mg EC Tab PO SCH (10:02)
[2018-05-22] MEDS: Omega-3-Acid Ethyl Esters 1 GM Cap PO SCH (12:24)
--- NOTE | 2018-05-22 14:54 | CP.PCM.PN ---
Subjective - Date & Time of Evaluation Date of Evaluation: 05/22/18 Time of Evaluation: 11:00 - Subjective Subjective: Vascular Surgery: Dr. Rocha Pt seen and examined. No acute overnight events. States he feels ok and denies any pain at the permacath site. Pt admits to having HD via the permacath w/o difficulties. Denies fevers/chills. Objective - Vital Signs/Intake and Output Vital Signs (last 24 hours): Temp Pulse Resp BP Pulse Ox 97.6 F 68 18 162/84 H 92 L 05/22/18 14:30 05/22/18 14:30 05/22/18 14:30 05/22/18 14:45 05/22/18 14:30 Intake and Output: 05/22/18 05/22/18 06:59 18:59 Output Total 300 Balance -300 - Medications Medications: Current Medications Acetaminophen (Tylenol 325mg Tab) [facility] Last Admin: 05/22/18 10:14 Dose: 650 mg Calcium Acetate (Phoslo) 667 mg PO QPM [facility] Last Admin: 05/21/18 17:57 Dose: 667 mg Doxazosin Mesylate (Cardura) 2 mg PO QAM [facility] Last Admin: 05/22/18 10:07 Dose: 2 mg Epoetin Popeye (Procrit) 10,000 unit IV [facility] Ergocalciferol (Drisdol 50,000 Intl Units Cap) 1 cap PO QWK [facility] Last Admin: 05/21/18 12:52 Dose: Not Given Ferrous Fumarate (Javier-Sequel) 50 [facility] [place] Heparin Sodium (Porcine) (Heparin) 3,700 units IVP [facility] Home Med (Chromium Amino Acid Chelate [Chromium]) 200 mg PO QPM [facility] Home Med (Fenugreek Seed/Bl.Thistle/Anis [Milkflow Capsule]) 400 mg PO QPM [facility] Home Med (Garlic [Garlic Oil]) 500 mg PO QPM [facility] Home Med (Icosapent Ethyl [Vascepa]) 0.5 gm PO QAM [facility] Hydralazine HCl (Apresoline) 25 mg PO TID [facility] Last Admin: 05/22/18 10:02 Dose: 25 mg Labetalol HCl (Trandate) 200 mg PO BID [facility] Last Admin: 05/22/18 10:07 Dose: 200 mg Magnesium Oxide (Mag-Ox) 400 mg PO QAM [facility] Last Admin: 05/22/18 10:02 Dose: 400 mg Minoxidil (Minoxidil) 2.5 mg PO QAM [facility] Last Admin: 05/22/18 10:03 Dose: 2.5 mg Uxpvx-6-Nbjl Ethyl Esters (Lovaza) 1 gm PO QAM [facility] Last Admin: 05/21/18 12:52 Dose: Not Given Pantoprazole Sodium (Protonix Ec Tab) 40 mg PO DAILY [facility] Last Admin: 05/22/18 10:02 Dose: 40 mg Sevelamer Carbonate (Renvela) 1,600 mg PO TIDCC [facility] Last Admin: 05/22/18 13:00 Dose: 1,600 mg Vitamin B Complex/Vit C/Folic Acid (Nephro-Nehemias) 1 tab PO 0800 [facility] Last Admin: 05/22/18 08:53 Dose: 1 tab - Labs Labs: 05/22/18 06:51 05/22/18 06:51 PT 12.8 SECONDS (9.7-12.2) H 05/20/18 12:57 INR 1.2 05/20/18 12:57 APTT 35 SECONDS (21-34) H 05/20/18 12:57 - Constitutional Appears: Well, No Acute Distress - Head Exam Head Exam: ATRAUMATIC, NORMOCEPHALIC - Eye Exam Eye Exam: Normal appearance - Neck Exam Additional comments: R neck with permacath; dressing C/D/I - Respiratory Exam Respiratory Exam: NORMAL BREATHING PATTERN - Cardiovascular Exam Cardiovascular Exam: RRR - GI/Abdominal Exam GI & Abdominal Exam: Soft - Neurological Exam Neurological Exam: Alert, Awake, Oriented x3 - Skin Skin Exam: Dry, Warm Assessment and Plan - Assessment and Plan (Free Text) Assessment: 72M with ESRD on HD Plan: - plan for AVF on Sunday - f/u vein mapping - left arm restrictions - medically optimize for OR - d/w Dr. Aj Muro
[2018-05-22] MEDS: Epoetin Alfa 10,000 unit/ml Dialysis IV SCH (15:19)
[2018-05-23 06:54] LABS: HEMOGLOBIN 8.1 g/dL (12.0-18.0); MEAN CELL VOLUME 82.7 fL (80.0-94.0); MEAN CORPUSCULAR HEMOGLOBIN 27.2 pg (27.0-31.0); MEAN CORPUSCULAR HGB CONC 32.8 g/dL (33.0-37.0); MEAN PLATELET VOLUME 9.5 fL (7.2-11.7); RBC 2.99 Mil/uL (4.40-5.90); RED CELL DISTRIBUTION WIDTH 14.9 % (11.5-14.5); WHITE BLOOD COUNT 7.2 K/uL (4.8-10.8)
[2018-05-23 07:49] LABS: CALCIUM 7.1 mg/dl (8.6-10.4)
[2018-05-23] MEDS: Multivitamin Vitamin B Complex (Nephro-Vite) Tab PO SCH (08:22)
[2018-05-23] MEDS: Omega-3-Acid Ethyl Esters 1 GM Cap PO SCH (09:12)
[2018-05-23] MEDS: Pantoprazole 40 mg EC Tab PO SCH (09:12)
[2018-05-23] MEDS: Multivitamin With Minerals Tab PO SCH (09:12)
[2018-05-23] MEDS: Magnesium Oxide 400 mg Tab UD PO SCH (09:14)
[2018-05-23] MEDS ORDERED: FERROUS FUMARATE 50 MG PO SCH (10:00)
--- NOTE | 2018-05-23 10:18 | CP.PCM.PN ---
Subjective - Date & Time of Evaluation Date of Evaluation: 05/23/18 Time of Evaluation: 10:15 - Subjective Subjective: Vascular Surgery: Dr. Rocha This 72 year old was seen and examined this AM at bedside. No acute overnight events. States he feels ok and denies any pain at the permacath site. Denies fevers/chills. Ready for surgery tomorrow AM. Objective - Vital Signs/Intake and Output Vital Signs (last 24 hours): Temp Pulse Resp BP Pulse Ox 98.3 F 75 18 177/73 H 100 05/23/18 07:00 05/23/18 07:30 05/23/18 07:00 05/23/18 07:00 05/23/18 07:00 Intake and Output: 05/23/18 05/23/18 06:59 18:59 Output Total 300 Balance -300 - Medications Medications: Current Medications Acetaminophen (Tylenol 325mg Tab) [address] [facility] Last Admin: 05/23/18 09:16 Dose: 650 mg Calcium Acetate (Phoslo) 667 mg PO QPM [facility] Last Admin: 05/22/18 18:15 Dose: 667 mg Doxazosin Mesylate (Cardura) [address] [facility] Last Admin: 05/23/18 09:13 Dose: 2 mg Epoetin Popeye (Procrit) 10,000 unit IV [facility] Last Admin: 05/22/18 15:19 Dose: 10,000 unit Ergocalciferol (Drisdol 50,000 Intl Units Cap) 1 cap PO QWK [facility] Last Admin: 05/21/18 12:52 Dose: Not Given Ferrous Fumarate (Javier-Sequel) [address] [facility] Heparin Sodium (Porcine) (Heparin) 3,700 units IVP F [facility] Last Admin: 05/22/18 15:19 Dose: 3,700 units Hydralazine HCl (Apresoline) 25 mg PO TID [facility] Last Admin: 05/23/18 09:19 Dose: 25 mg Labetalol HCl (Trandate) 200 mg PO BID [facility] Last Admin: 05/23/18 09:13 Dose: 200 mg Magnesium Oxide (Mag-Ox) [address] [facility] Last Admin: 05/23/18 09:14 Dose: 400 mg Minoxidil (Minoxidil) 2.[address] [facility] Last Admin: 05/23/18 09:13 Dose: 2.5 mg Multivitamins/Minerals (Therapeutic-M Tab) 1 tab PO DAILY [facility] Last Admin: 05/23/18 09:12 Dose: 1 tab Qcfbq-2-Hphd Ethyl Esters (Lovaza) 1 gm PO QAM [facility] Last Admin: 05/23/18 09:12 Dose: 1 gm Pantoprazole Sodium (Protonix Ec Tab) 40 mg PO DAILY [facility] Last Admin: 05/23/18 09:12 Dose: 40 mg Sevelamer Carbonate (Renvela) 1,600 mg PO TIDCC [facility] Last Admin: 05/23/18 08:22 Dose: 1,600 mg Vitamin B Complex/Vit C/Folic Acid (Nephro-Nehemias) 1 tab PO 0800 [facility] Last Admin: 05/23/18 08:22 Dose: 1 tab - Labs Labs: 05/23/18 06:44 05/23/18 06:44 PT 12.8 SECONDS (9.7-12.2) H 05/20/18 12:57 INR 1.2 05/20/18 12:57 APTT 35 SECONDS (21-34) H 05/20/18 12:57 - Constitutional Appears: Well, No Acute Distress - Head Exam Head Exam: ATRAUMATIC, NORMOCEPHALIC - Eye Exam Eye Exam: Normal appearance - Neck Exam Additional comments: R neck with permacath; dressing C/D/I - Respiratory Exam Respiratory Exam: NORMAL BREATHING PATTERN - Cardiovascular Exam Cardiovascular Exam: RRR - GI/Abdominal Exam GI & Abdominal Exam: Soft - Neurological Exam Neurological Exam: Alert, Awake, Oriented x3 - Skin Skin Exam: Dry, Warm Assessment and Plan - Assessment and Plan (Free Text) Assessment: 72M with ESRD on HD Plan: - NPO after midnight - AM labs - left arm restrictions - Plan for OR tomorrow for AVF - d/w Dr. Rocha Further recs per Dr. Aj Mcdonough PGY3
--- NOTE | 2018-05-23 12:39 | VASCLAB ---
Date of service: 05/22/2018 PROCEDURE: Upper Extremity Venous Mapping HISTORY: Renal failure, vein mapping, pre-op AV fistula. PRIORS: None. TECHNIQUE: Bilateral upper extremity, internal jugular, subclavian, axillary, brachial, ulnar, radial, basilic and upper cephalic veins were evaluated. Flow was assessed with color Doppler, compressibility, assessment of phasic flow and augmentation response. Report prepared by JESSICA Bowman FINDINGS: RIGHT: 1. Internal Jugular Vein: Unable to examine. 2. Subclavian Vein: Unable to examine. 3. Axillary Vein: Compressibility - Fully compressible: Thrombus - None 4. Brachial Vein: Compressibility - Fully compressible: Thrombus - None 5. Ulnar Vein:Compressibility - Fully compressible: Thrombus - None 6. Radial Vein:Compressibility - Fully compressible: Thrombus - None 7. Cephalic Vein: Compressibility - Fully compressible: thrombus - None 7.1. Upper Arm: Proximal Diameter: 0.31cm. Mid Diameter: 0.31cm. Distal Diameter: 0.25. 7.2. Forearm: Proximal Diameter: 0.30cm. Mid Diameter:0.36cm. Distal Diameter: 0.31cm 8. Basilic Vein:Compressibility - Fully compressible: thrombus - None 8.1. Upper Arm:Proximal Diameter: 0.51cm. Mid Diameter: 0.37cm. Distal Diameter: 0.30cm. 8.2. Forearm: Proximal Diameter: 0.14cm. Mid Diameter:0.19cm. Distal Diameter: 0.15cm. LEFT: 1. Internal Jugular Vein: Compressibility - Fully compressible: Thrombus - None : Flow - Phasic 2. Subclavian Vein:Compressibility - Fully compressible: Thrombus - None : Flow - Phasic 3. Axillary Vein: Compressibility - Fully compressible: Thrombus - None 4. Brachial Vein: Compressibility - Fully compressible: Thrombus - None 5. Ulnar Vein:Compressibility - Fully compressible: Thrombus - None 6. Radial Vein:Compressibility - Fully compressible: Thrombus - None 7. Cephalic Vein: Compressibility - Fully compressible: thrombus - None 7.1. Upper Arm: Proximal Diameter: 0.42cm. Mid Diameter: 0.32cm. Distal Diameter: 0.37cm. 7.2. Forearm: Proximal Diameter: 0.35cm. Mid Diameter:0.27cm. Distal Diameter: 0.29cm 8. Basilic Vein:Compressibility - Fully compressible: thrombus - None 8.1. Upper Arm:Proximal Diameter: 0.65cm. Mid Diameter: 0.39cm. Distal Diameter: 0.41 8.2. Forearm: Proximal Diameter: 0.33cm. Mid Diameter:0.23cm. Distal Diameter: 0.19cm. OTHER FINDINGS: No evidence of venous thrombosis in bilateral upper extremities. IMPRESSION: Refer to the above listed measurements for vein size.
[2018-05-23] MEDS ORDERED: Sodium Chloride 0.9% 500 ML IV SCH (13:15)
--- NOTE | 2018-05-23 19:38 | CP.PCM.PN ---
Subjective - Date & Time of Evaluation Date of Evaluation: 05/23/18 Time of Evaluation: 14:00 - Subjective Subjective: SEEN ON RENAL F/U D/W DR PATE AT LENGTH PT APPEARS IN VERY GOOD SPIRIT RECIEVED .. HAPPY THAT HE FINALY CAME FOR HD RECIEVED HD YESTERDAY SUN AND THE DAY BESHALOM GRIFFINU RECIEVED 2 U PRBC .. ONE ON EACH HD FOR Objective - Vital Signs/Intake and Output Vital Signs (last 24 hours): Temp Pulse Resp BP Pulse Ox 97.5 F L 84 20 146/69 97 05/23/18 15:00 05/23/18 18:27 05/23/18 15:00 05/23/18 15:00 05/23/18 15:00 - Medications Medications: Current Medications Acetaminophen (Tylenol 325mg Tab) [facility] [place] [facility] Last Admin: 05/23/18 09:16 Dose: 650 mg Calcium Acetate (Phoslo) 667 mg PO QPM [facility] Last Admin: 05/23/18 17:30 Dose: 667 mg Doxazosin Mesylate (Cardura) 2 [facility] [place] [place] Last Admin: 05/23/18 09:13 Dose: 2 mg Epoetin Popeye (Procrit) 10,000 unit IV MWF [facility] Last Admin: 05/22/18 15:19 Dose: 10,000 unit Ergocalciferol (Drisdol 50,000 Intl Units Cap) 1 cap PO QWK [facility] Last Admin: 05/21/18 12:52 Dose: Not Given Heparin Sodium (Porcine) (Heparin) 3,700 units IVP MWF [facility] Last Admin: 05/22/18 15:19 Dose: 3,700 units Labetalol HCl (Trandate) 200 mg PO BID [facility] Last Admin: 05/23/18 09:13 Dose: 200 mg Magnesium Oxide (Mag-Ox) 400 [facility] [place] Last Admin: 05/23/18 09:14 Dose: 400 mg Minoxidil (Minoxidil) 2.5 mg PO QAM [facility] Last Admin: 05/23/18 09:13 Dose: 2.5 mg Multivitamins/Minerals (Therapeutic-M Tab) 1 tab PO DAILY [facility] Last Admin: 05/23/18 09:12 Dose: 1 tab Mxsgh-3-Naot Ethyl Esters (Lovaza) 1 [facility] [place] Last Admin: 05/23/18 09:12 Dose: 1 gm Pantoprazole Sodium (Protonix Ec Tab) 40 mg PO DAILY [facility] Last Admin: 05/23/18 09:12 Dose: 40 mg Sevelamer Carbonate (Renvela) 1,600 mg PO TIDCC [facility] Last Admin: 05/23/18 17:30 Dose: 1,600 mg Vitamin B Complex/Vit C/Folic Acid (Nephro-Nehemias) 1 tab PO 0800 [facility] Last Admin: 05/23/18 08:22 Dose: 1 tab - Labs Labs: 05/23/18 06:44 05/23/18 06:44 PT 12.8 SECONDS (9.7-12.2) H 05/20/18 12:57 INR 1.2 05/20/18 12:57 APTT 35 SECONDS (21-34) H 05/20/18 12:57 Assessment and Plan - Assessment and Plan (Free Text) Assessment: ESRD ON HD .. NEXT HD IN AM .. ALSO GETTING AVF IN AM ANEMIA OF ESRD .. RECIEVED 2 U PRBC ON HD .. ON EPO ELECTROLYTES ABN .. HYPERKALEMIA .. OK NOW HTN . WE NEED TO TAPER ANTI BP SLPWLY OLD CVA HYPERURECEMIA P : HD IN AM .. M W F EPO FOR ANEMIA .. ALSO NEEDS IV IRON ON HD AVF TO BE DONE BY DR JONO GARCÍA IN AM SW TO FAX PAPERS TO [facility] [place] FOR OUT PT HD SPOT D/C HYDRALAZIN C/O PRESENT CARE
--- NOTE | 2018-05-24 00:58 | PN ---
DATE: 05/22/2018 SUBJECTIVE: The patient was seen on 05/22/2018. The patient was pale, and he vomited once. OBJECTIVE: VITAL SIGNS: Blood pressure was 151/74, temperature 97.6, respiratory rate 20, and pulse 75. HEENT: Pupils equal and reactive to light. Pale appearing mucosa of the conjunctivae. NECK: Supple. No JVD. No carotid bruit. No lymph node. No thyromegaly. CHEST AND LUNGS: Bilateral symmetrical expansion. Good air exchange. No rales, no rhonchi. CARDIOVASCULAR SYSTEM: PMI not localized. S1, S2. No additional sounds. ABDOMEN: Normoactive bowel sounds. No tenderness. No organomegaly. No masses. EXTREMITIES: No cyanosis, no clubbing, no edema. CENTRAL NERVOUS SYSTEM: The patient has right-sided hemiparesis from previous CVA; and he is alert, awake, and oriented x2. ASSESSMENT: 1. End-stage renal disease, started on hemodialysis. 2. Hypertension. 3. Cerebrovascular accident with right-sided hemiparesis. PLAN: Continue current antihypertensive medications, packed RBC transfusion during hemodialysis. Follow with case management regarding the dialysis schedule as an outpatient. Plan for fistula placement also. Carmella Estrada MD
--- NOTE | 2018-05-24 01:10 | PN ---
DATE: 05/23/2018 SUBJECTIVE: The patient was seen today, 05/23/2018. He was not in any cardiopulmonary distress but the patient was feeling dizzy. OBJECTIVE: VITAL SIGNS: Blood pressure at the time of dizziness was 94/70, temperature 98.6, respiratory rate 18, and pulse 79. HEENT: Pupils equal and reactive to light. Pale mucosa of the conjunctivae. NECK: Supple. No JVD. No carotid bruit. No lymph node. No thyromegaly. CHEST AND LUNGS: Bilateral symmetrical expansion. Good air exchange. No rales, no rhonchi. CARDIOVASCULAR SYSTEM: PMI not localized. S1, S2. No additional sounds. ABDOMEN: Normoactive bowel sounds. No tenderness. No organomegaly. No masses. EXTREMITIES: No cyanosis, no clubbing, no edema. CENTRAL NERVOUS SYSTEM: Alert, awake, oriented x2; and the patient has right-sided hemiparesis. ASSESSMENT: Anemia of chronic disease, end stage renal disease, started on hemodialysis. PLAN: The patient will get cardiology clearance for possible AV fistula placement and patient is still waiting for the case management for dialysis schedule arrangement. Also, we will give the patient a bolus of 500 mL normal saline as blood pressure was 94, and we will add just the antihypertensive medications. Carmella Estrada MD
[2018-05-24 06:31] LABS: BASO % 0.2 % (0.0-2.0); EOS # 0.7 K/uL (0.0-0.7); EOS % 8.6 % (0.0-4.0); HEMOGLOBIN 7.9 g/dL (12.0-18.0); LYMPH # 1.4 K/uL (1.0-4.3); LYMPH % 16.1 % (20.0-40.0); MEAN CORPUSCULAR HEMOGLOBIN 27.5 pg (27.0-31.0); MEAN CORPUSCULAR HGB CONC 33.1 g/dL (33.0-37.0); MEAN PLATELET VOLUME 9.7 fL (7.2-11.7); MONO # 0.7 K/uL (0.0-0.8); MONO % 8.1 % (0.0-10.0); NEUT # 5.8 K/uL (1.8-7.0); RBC 2.86 Mil/uL (4.40-5.90); RED CELL DISTRIBUTION WIDTH 14.9 % (11.5-14.5); WHITE BLOOD COUNT 8.7 K/uL (4.8-10.8)
[2018-05-24 06:48] LABS: INR 1.1; PROTHROMBIN TIME 12.1 SECONDS (9.7-12.2)
[2018-05-24 07:50] LABS: CALCIUM 6.8 mg/dl (8.6-10.4)
[2018-05-24] MEDS: Multivitamin Vitamin B Complex (Nephro-Vite) Tab PO SCH (07:55)
[2018-05-24] MEDS: Ferrous fumarate/Vit C 65-25 MG TABLET.ER PO SCH (09:53)
[2018-05-24] MEDS: Pantoprazole 40 mg EC Tab PO SCH (09:54)
[2018-05-24] MEDS: Magnesium Oxide 400 mg Tab UD PO SCH (09:54)
[2018-05-24] MEDS: Multivitamin With Minerals Tab PO SCH (09:54)
[2018-05-24] MEDS: Omega-3-Acid Ethyl Esters 1 GM Cap PO SCH (09:54)
--- NOTE | 2018-05-24 15:08 | CP.PCM.PN ---
Subjective - Date & Time of Evaluation Date of Evaluation: 05/24/18 Time of Evaluation: 08:00 - Subjective Subjective: Vascular Surgery: Dr. Rocha Pt seen and examined. No acute overnight events. This morning pt states he'd doing ok and denies any pain. Denies nausea/vomiting, fevers/chills. Objective - Vital Signs/Intake and Output Vital Signs (last 24 hours): Temp Pulse Resp BP Pulse Ox 97.7 F 89 16 118/65 97 05/24/18 14:56 05/24/18 14:56 05/24/18 14:56 05/24/18 14:56 05/24/18 13:30 Intake and Output: 05/24/18 05/24/18 06:59 18:59 Intake Total 480 0 Output Total 475 Balance 5 0 - Medications Medications: Current Medications Acetaminophen (Tylenol 325mg Tab) [facility] Last Admin: 05/24/18 09:56 Dose: 650 mg Calcium Acetate (Phoslo) 667 mg PO QPM [facility] Last Admin: 05/23/18 17:30 Dose: 667 mg Doxazosin Mesylate (Cardura) 2 [facility] Last Admin: 05/24/18 09:53 Dose: 2 mg Epoetin Popeye (Procrit) 10,000 unit IV [facility] Last Admin: 05/22/18 15:19 Dose: 10,000 unit Ergocalciferol (Drisdol 50,000 Intl Units Cap) 1 cap PO QWK [facility] Last Admin: 05/21/18 12:52 Dose: Not Given Heparin Sodium (Porcine) (Heparin) 3,700 units IVP [facility] Last Admin: 05/22/18 15:19 Dose: 3,700 units Labetalol HCl (Trandate) 200 mg PO BID [facility] Last Admin: 05/23/18 09:13 Dose: 200 mg Magnesium Oxide (Mag-Ox) 400 [facility] Last Admin: 05/24/18 09:54 Dose: 400 mg Minoxidil (Minoxidil) 2.5 mg PO QAM [facility] Last Admin: 05/24/18 09:54 Dose: 2.5 mg Multivitamins/Minerals (Therapeutic-M Tab) 1 tab PO DAILY [facility] Last Admin: 05/24/18 09:54 Dose: 1 tab Pxskx-3-Olbr Ethyl Esters (Lovaza) 1 gm PO QAM [facility] Last Admin: 05/24/18 09:54 Dose: 1 gm Pantoprazole Sodium (Protonix Ec Tab) 40 mg PO DAILY [facility] Last Admin: 05/24/18 09:54 Dose: 40 mg Sevelamer Carbonate (Renvela) 1,600 mg PO TIDCC [facility] Last Admin: 05/24/18 12:20 Dose: 1,600 mg Vitamin B Complex/Vit C/Folic Acid (Nephro-Nehemias) 1 tab PO 0800 [facility] Last Admin: 05/24/18 07:55 Dose: Not Given - Labs Labs: 05/24/18 06:23 05/24/18 06:24 PT 12.1 SECONDS (9.7-12.2) 05/24/18 06:24 INR 1.1 05/24/18 06:24 APTT 29 SECONDS (21-34) 05/24/18 06:24 - Constitutional Appears: Well, No Acute Distress - Head Exam Head Exam: ATRAUMATIC, NORMOCEPHALIC - ENT Exam ENT Exam: Mucous Membranes Moist - Neck Exam Additional comments: R IJ permacath, dressing clean/dry - Respiratory Exam Respiratory Exam: NORMAL BREATHING PATTERN - Cardiovascular Exam Cardiovascular Exam: RRR - GI/Abdominal Exam GI & Abdominal Exam: Soft - Neurological Exam Neurological Exam: Alert, Awake, Oriented x3 - Skin Skin Exam: Dry, Warm Assessment and Plan - Assessment and Plan (Free Text) Assessment: 72M with ESRSD on HD Plan: - plan for AVF on Sunday - NPO after midnight Sun - d/w Dr. Aj Muro
[2018-05-24] MEDS: Epoetin Alfa 10,000 unit/ml Dialysis IV SCH (15:55)
--- NOTE | 2018-05-24 23:55 | PN ---
DATE: 05/24/2018 SUBJECTIVE: The patient is seen today, 05/24/2018. He was seen on hemodialysis. No respiratory distress and the patient overall feels better. PHYSICAL EXAMINATION: VITAL SIGNS: Blood pressure 130/71, temperature 97.5, respiratory rate 16, and pulse 74. HEENT: Slightly pale mucosa of the conjunctivae. NECK: Supple. No JVD. No carotid bruit. No lymph node. No thyromegaly. CHEST AND LUNGS: Bilateral symmetrical expansion. Good air exchange. No rales, no rhonchi. CARDIOVASCULAR SYSTEM: PMI not localized. S1, S2. No additional sounds. ABDOMEN: Normoactive bowel sounds. No tenderness. No organomegaly. No masses. EXTREMITIES: No cyanosis, no clubbing, no edema. CENTRAL NERVOUS SYSTEMS: Alert, awake, and oriented x2. Positive slurred speech and right-sided hemiparesis. ASSESSMENT: 1. End-stage renal disease, started on hemodialysis after placing a tunneled catheter. The patient is for fistula placement. We will get cardiac clearance. 2. Hypertension. 3. Anemia of chronic disease, status post packed red blood cells transfusion and currently hemoglobin is 7.9 and hematocrit 23.8. PLAN: Cardiac clearance for fistula placement. Continue hemodialysis as per fusion operator. Continue Procrit and if hemoglobin dropped, we will transfuse again. Carmella Estrada MD
--- NOTE | 2018-05-25 06:38 | CP.PCM.PN ---
Subjective - Date & Time of Evaluation Date of Evaluation: 05/25/18 Time of Evaluation: 06:35 - Subjective Subjective: Vascular Surgery: Dr. Rocha Pt seen and examined. No acute overnight events. States he feels well this morning and denies any complaints. Pt is tolerating his diet and denies any fevers/chills. Objective - Vital Signs/Intake and Output Vital Signs (last 24 hours): Temp Pulse Resp BP Pulse Ox 98.9 F 81 20 133/66 96 05/24/18 23:05 05/24/18 23:30 05/24/18 23:05 05/24/18 23:05 05/24/18 23:05 Intake and Output: 05/24/18 05/25/18 18:59 06:59 Intake Total 355 350 Output Total 300 Balance 355 50 - Medications Medications: Current Medications Acetaminophen (Tylenol 325mg Tab) [facility] [place] Last Admin: 05/24/18 09:56 Dose: 650 mg Calcium Acetate (Phoslo) 667 mg PO QPM [facility] Last Admin: 05/24/18 17:50 Dose: 667 mg Doxazosin Mesylate (Cardura) [facility] [place] Last Admin: 05/24/18 09:53 Dose: 2 mg Epoetin Popeye (Procrit) 10,000 unit IV [facility] [place] Last Admin: 05/24/18 15:55 Dose: 10,000 unit Ergocalciferol (Drisdol 50,000 Intl Units Cap) 1 cap PO QWK [facility] Last Admin: 05/21/18 12:52 Dose: Not Given Heparin Sodium (Porcine) (Heparin) 3,700 units IVP [facility] Last Admin: 05/24/18 15:57 Dose: 3,700 units Labetalol HCl (Trandate) 200 mg PO BID [facility] Last Admin: 05/23/18 09:13 Dose: 200 mg Magnesium Oxide (Mag-Ox) 400 [facility] [place] Last Admin: 05/24/18 09:54 Dose: 400 mg Minoxidil (Minoxidil) 2.5 mg PO QAM [facility] Last Admin: 05/24/18 09:54 Dose: 2.5 mg Multivitamins/Minerals (Therapeutic-M Tab) 1 tab PO DAILY [facility] Last Admin: 05/24/18 09:54 Dose: 1 tab Vkcnr-1-Lgkl Ethyl Esters (Lovaza) 1 gm PO QAM [facility] Last Admin: 05/24/18 09:54 Dose: 1 gm Pantoprazole Sodium (Protonix Ec Tab) 40 mg PO DAILY [facility] Last Admin: 05/24/18 09:54 Dose: 40 mg Sevelamer Carbonate (Renvela) 1,600 mg PO TIDCC [facility] Last Admin: 05/24/18 17:50 Dose: 1,600 mg Vitamin B Complex/Vit C/Folic Acid (Nephro-Nehemias) 1 tab PO 0800 [facility] Last Admin: 05/24/18 07:55 Dose: Not Given - Labs Labs: 05/24/18 06:23 05/24/18 06:24 PT 12.1 SECONDS (9.7-12.2) 05/24/18 06:24 INR 1.1 05/24/18 06:24 APTT 29 SECONDS (21-34) 05/24/18 06:24 - Constitutional Appears: Well, No Acute Distress - Head Exam Head Exam: ATRAUMATIC, NORMOCEPHALIC - Eye Exam Eye Exam: Normal appearance - ENT Exam ENT Exam: Mucous Membranes Moist - Neck Exam Additional comments: R IJ permacath; dressing clean/dry - Respiratory Exam Respiratory Exam: NORMAL BREATHING PATTERN - Cardiovascular Exam Cardiovascular Exam: RRR - GI/Abdominal Exam GI & Abdominal Exam: Soft - Neurological Exam Neurological Exam: Alert, Awake, Oriented x3 - Skin Skin Exam: Dry, Warm Assessment and Plan - Assessment and Plan (Free Text) Assessment: 72M with ESRD on HD Plan: - plan for AVF sunday - medically optimize for OR - NPO past midnight sunday - d/w Dr. Aj Muro
[2018-05-25 06:42] LABS: BASO % 0.5 % (0.0-2.0); EOS # 0.8 K/uL (0.0-0.7); EOS % 8.6 % (0.0-4.0); HEMOGLOBIN 9.1 g/dL (12.0-18.0); LYMPH # 1.7 K/uL (1.0-4.3); LYMPH % 19.1 % (20.0-40.0); MEAN CORPUSCULAR HEMOGLOBIN 27.9 pg (27.0-31.0); MEAN CORPUSCULAR HGB CONC 33.3 g/dL (33.0-37.0); MEAN PLATELET VOLUME 9.4 fL (7.2-11.7); NEUT # 5.4 K/uL (1.8-7.0); NEUT % 60.8 % (50.0-75.0); NRBC % 0.1 % (0.0-2.0); RBC 3.25 Mil/uL (4.40-5.90); RED CELL DISTRIBUTION WIDTH 14.9 % (11.5-14.5); WHITE BLOOD COUNT 8.8 K/uL (4.8-10.8)
[2018-05-25 07:33] LABS: ALB/GLOB RATIO 1.1 (1.0-2.1); ALBUMIN 3.3 g/dL (3.5-5.0); CALCIUM 7.3 mg/dl (8.6-10.4)
[2018-05-25] MEDS: Multivitamin Vitamin B Complex (Nephro-Vite) Tab PO SCH (08:33)
[2018-05-25] MEDS: Pantoprazole 40 mg EC Tab PO SCH (09:25)
[2018-05-25] MEDS: Omega-3-Acid Ethyl Esters 1 GM Cap PO SCH (09:25)
[2018-05-25] MEDS: Ferrous fumarate/Vit C 65-25 MG TABLET.ER PO SCH (09:25)
[2018-05-25] MEDS: Magnesium Oxide 400 mg Tab UD PO SCH (09:25)
[2018-05-25] MEDS: Multivitamin With Minerals Tab PO SCH (09:25)
[2018-05-26] MEDS: Multivitamin Vitamin B Complex (Nephro-Vite) Tab PO SCH (08:51)
[2018-05-26] MEDS: Magnesium Oxide 400 mg Tab UD PO SCH (09:50)
[2018-05-26] MEDS: Pantoprazole 40 mg EC Tab PO SCH (09:50)
[2018-05-26] MEDS: Ferrous fumarate/Vit C 65-25 MG TABLET.ER PO SCH (09:50)
[2018-05-26] MEDS: Omega-3-Acid Ethyl Esters 1 GM Cap PO SCH (09:50)
[2018-05-26] MEDS: Multivitamin With Minerals Tab PO SCH (09:50)
--- NOTE | 2018-05-26 09:58 | CP.PCM.CON ---
History of Present Illness - History of Present Illness History of Present Illness: Reason For Consultation: Pre Op cardiac risk assessment 72 y/o M with a PMHX of HTN, CKD, and anemia, presents to the ED for evaluation to start hemodyalysis. He was sent to the ER by Dr. Greene (nephrology) on 05/08 for HD eval, but states that he did not come until now because he did not want to miss [facility]. He currently denies Headache, fever, chest pain, SOB, Nausea, Vomit, Diarrhea,numbness, and tingling in the extremities. PMHX: CKD, HTN, Anemia CVA PSHX: Abdominal Surgery (pt unsure what surgery) Social: 50 pack year smoker, denies ETOH, lives at home with aunt RADHA Review of Systems - Review of Systems All systems: reviewed and no additional remarkable complaints except (as per HPI) - Cardiovascular Cardiovascular: absent: Chest Pain - Respiratory Respiratory: As Per HPI. absent: Cough - Gastrointestinal Gastrointestinal: As Per HPI, Abdominal Pain Additional comments: LUQ - Genitourinary Genitourinary: As Per HPI - Neurological Neurological: absent: Abnormal Gait, Abnormal Hearing, Abnormal Speech Past Patient History - Past Social History Smoking Status: Former Smoker Alcohol: None Drugs: Denies - CARDIAC Hx Hypertension: Yes - PULMONARY Hx Respiratory Disorders: No - NEUROLOGICAL Hx Neurological Disorder: Yes HX Cerebrovascular Accident: Yes (RT side weakness) - HEENT Hx HEENT Problems: No - RENAL Hx Chronic Kidney Disease: No - ENDOCRINE/METABOLIC Hx Endocrine Disorders: No - HEMATOLOGICAL/ONCOLOGICAL Hx Blood Disorders: Yes Hx Anemia: Yes - MUSCULOSKELETAL/RHEUMATOLOGICAL Hx Musculoskeletal Disorders: No - GASTROINTESTINAL Hx Gastrointestinal Disorders: No - GENITOURINARY/GYNECOLOGICAL Hx Genitourinary Disorders: No - PSYCHIATRIC Hx Psychophysiologic Disorder: No Hx Substance Use: No - SURGICAL HISTORY Hx Surgeries: No - ANESTHESIA Hx Anesthesia: Yes Meds Allergies/Adverse Reactions: Allergies Allergy/AdvReac Type Severity Reaction Status Date / Time No Known Allergies Allergy Unverified 05/20/18 11:32 Physical Exam - Constitutional Appears: Well, No Acute Distress - Head Exam Head Exam: ATRAUMATIC, NORMOCEPHALIC - Eye Exam Eye Exam: EOMI - ENT Exam ENT Exam: Mucous Membranes Moist - Respiratory Exam Respiratory Exam: Clear to Auscultation Bilateral, NORMAL BREATHING PATTERN - Cardiovascular Exam Cardiovascular Exam: REGULAR RHYTHM, +S1, +S2 - GI/Abdominal Exam GI & Abdominal Exam: Normal Bowel Sounds, Soft - Extremities Exam Extremities exam: Positive for: pedal edema - Neurological Exam Neurological exam: Alert, Oriented x3 - Skin Skin Exam: Dry, Warm Assessment & Plan - Assessment and Plan (Free Text) Assessment: 72M with CKD, for permacath eval for HD Plan: Patient scheduled for ECHO and Stress test for pre Op cardiac risk assessment Thank you Past Patient History - Past Medical History & Family History Past Medical History?: Yes - Past Social History Smoking Status: Former Smoker - CARDIAC Hx Hypertension: Yes - PULMONARY Hx Respiratory Disorders: No - NEUROLOGICAL Hx Neurological Disorder: Yes HX Cerebrovascular Accident: Yes (RT side weakness) - HEENT Hx HEENT Problems: No - RENAL Hx Chronic Kidney Disease: Yes Hx Dialysis: Yes (First time to be) Type of Dialysis Access: Right jugular permacath - ENDOCRINE/METABOLIC Hx Endocrine Disorders: No - HEMATOLOGICAL/ONCOLOGICAL Hx Anemia: Yes - MUSCULOSKELETAL/RHEUMATOLOGICAL Hx Musculoskeletal Disorders: No Hx Falls: Yes - GASTROINTESTINAL Hx Gastrointestinal Disorders: No - GENITOURINARY/GYNECOLOGICAL Hx Genitourinary Disorders: No - PSYCHIATRIC Hx Substance Use: No - SURGICAL HISTORY Hx Surgeries: No - ANESTHESIA Hx Anesthesia: Yes Meds Allergies/Adverse Reactions: Allergies Allergy/AdvReac Type Severity Reaction Status Date / Time No Known Allergies Allergy Unverified 05/20/18 11:32 - Medications Medications: Current Medications Acetaminophen (Tylenol 325mg Tab) 650 mg PO QAM [facility] Last Admin: 05/26/18 09:50 Dose: 650 mg Calcium Acetate (Phoslo) 667 mg PO QPM [facility] Last Admin: 05/25/18 17:28 Dose: 667 mg Doxazosin Mesylate (Cardura) 2 mg PO QAM [facility] Last Admin: 05/26/18 09:50 Dose: 2 mg Epoetin Popeye (Procrit) 10,000 unit IV MWF [facility] Last Admin: 05/24/18 15:55 Dose: 10,000 unit Ergocalciferol (Drisdol 50,000 Intl Units Cap) 1 cap PO QWK [facility] Last Admin: 05/21/18 12:52 Dose: Not Given Labetalol HCl (Trandate) 200 mg PO BID [facility] Last Admin: 05/23/18 09:13 Dose: 200 mg Magnesium Oxide (Mag-Ox) 400 mg PO QAM [facility] Last Admin: 05/26/18 09:50 Dose: 400 mg Minoxidil (Minoxidil) 2.5 mg PO QAM [facility] Last Admin: 05/26/18 09:50 Dose: 2.5 mg Multivitamins/Minerals (Therapeutic-M Tab) 1 tab PO DAILY [facility] Last Admin: 05/26/18 09:50 Dose: 1 tab Yksbe-2-Wcde Ethyl Esters (Lovaza) 1 gm PO QAM [facility] Last Admin: 05/26/18 09:50 Dose: 1 gm Pantoprazole Sodium (Protonix Ec Tab) 40 mg PO DAILY [facility] Last Admin: 05/26/18 09:50 Dose: 40 mg Sevelamer Carbonate (Renvela) 1,600 mg PO TIDCC [facility] Last Admin: 05/26/18 08:51 Dose: 1,600 mg Vitamin B Complex/Vit C/Folic Acid (Nephro-Nehemias) 1 tab PO 0800 [facility] Last Admin: 05/26/18 08:51 Dose: 1 tab Results - Vital Signs Recent Vital Signs: Last Vital Signs Temp 99.4 F 05/25/18 23:00 Pulse 73 05/26/18 07:30 Resp 20 05/25/18 23:00 BP 166/69 H 05/25/18 23:00 Pulse Ox 99 05/25/18 23:00 - Labs Result Diagrams: 05/25/18 06:35 05/25/18 06:35
--- NOTE | 2018-05-26 10:39 | CP.PCM.PN ---
Subjective - Date & Time of Evaluation Date of Evaluation: 05/26/18 Time of Evaluation: 07:10 - Subjective Subjective: Surgery Progress note. Dr. Aj mittal. Pt seen and examined at bedside. No acute events overnight. No N/V/D. No F/C. No CP/SOB. no new complaints. Objective - Vital Signs/Intake and Output Vital Signs (last 24 hours): Temp Pulse Resp BP Pulse Ox 99.4 F 73 20 166/69 H 99 05/25/18 23:00 05/26/18 07:30 05/25/18 23:00 05/25/18 23:00 05/25/18 23:00 Intake and Output: 05/26/18 05/26/18 06:59 18:59 Intake Total 350 Output Total 350 Balance 0 - Medications Medications: Current Medications Acetaminophen (Tylenol 325mg Tab) [facility] [place] Admin: 05/26/18 09:50 Dose: 650 mg Calcium Acetate (Phoslo) 667 mg PO QPM [facility] Last Admin: 05/25/18 17:28 Dose: 667 mg Doxazosin Mesylate (Cardura) 2 mg PO QAM [facility] Last Admin: 05/26/18 09:50 Dose: 2 mg Epoetin Popeye (Procrit) 10,000 unit IV MWF [facility] Last Admin: 05/24/18 15:55 Dose: 10,000 unit Ergocalciferol (Drisdol 50,000 Intl Units Cap) 1 cap PO QWK [facility] Last Admin: 05/21/18 12:52 Dose: Not Given Labetalol HCl (Trandate) 200 mg PO BID [facility] Last Admin: 05/23/18 09:13 Dose: 200 mg Magnesium Oxide (Mag-Ox) 400 mg PO QAM [facility] Last Admin: 05/26/18 09:50 Dose: 400 mg Minoxidil (Minoxidil) 2.[facility] [place] Last Admin: 05/26/18 09:50 Dose: 2.5 mg Multivitamins/Minerals (Therapeutic-M Tab) 1 tab PO DAILY [facility] Last Admin: 05/26/18 09:50 Dose: 1 tab Lvdgw-8-Teob Ethyl Esters (Lovaza) [facility] [place] Last Admin: 05/26/18 09:50 Dose: 1 gm Pantoprazole Sodium (Protonix Ec Tab) 40 mg PO DAILY [facility] Last Admin: 05/26/18 09:50 Dose: 40 mg Sevelamer Carbonate (Renvela) 1,600 mg PO TIDCC [facility] Last Admin: 05/26/18 08:51 Dose: 1,600 mg Vitamin B Complex/Vit C/Folic Acid (Nephro-Nehemias) 1 tab PO 0800 [facility] Last Admin: 05/26/18 08:51 Dose: 1 tab - Labs Labs: 05/25/18 06:35 05/25/18 06:35 PT 12.1 SECONDS (9.7-12.2) 05/24/18 06:24 INR 1.1 05/24/18 06:24 APTT 29 SECONDS (21-34) 05/24/18 06:24 - Constitutional Appears: Well, Non-toxic, No Acute Distress - Head Exam Head Exam: ATRAUMATIC, NORMAL INSPECTION, NORMOCEPHALIC - Eye Exam Eye Exam: absent: Scleral icterus - Respiratory Exam Respiratory Exam: NORMAL BREATHING PATTERN. absent: Accessory Muscle Use, Respiratory Distress - Cardiovascular Exam Cardiovascular Exam: absent: JVD - GI/Abdominal Exam GI & Abdominal Exam: Soft. absent: Guarding, Rigid, Tenderness, Rebound - Extremities Exam Extremities Exam: Normal Inspection. absent: Calf Tenderness - Neurological Exam Neurological Exam: Alert, Awake, Oriented x3 - Psychiatric Exam Psychiatric exam: Normal Affect, Normal Mood - Skin Skin Exam: Dry, Intact, Normal Color, Warm Assessment and Plan - Assessment and Plan (Free Text) Assessment: 72yo M with ESRD on HD. Plan: - Plan for AVF tomorrow, 05/27. - Medically optimize - f/u BMP tonight - NPO past midnight. Further recs as per Dr. Aj Salinas PGY2 Surgery
--- NOTE | 2018-05-26 17:13 | CARD ---
APPROVED REPORT Date of service: 05/25/2018 EXAM: Two-dimensional and M-mode echocardiogram with Doppler and color Doppler. Other Information Quality : GoodRhythm : NSR INDICATION Pre-Op 2D DIMENSIONS LA [id number] (18-58mL) M-Mode DIMENSIONS Left Atrium (MM)4.61 (2.5-4.0cm)IVSd1.17 (0.7-1.1cm) Aortic Root2.66 (2.2-3.7cm)LVDd5.51 (4.0-5.6cm) Aortic Cusp Exc.1.87 (1.5-2.0cm)PWd1.64 (0.7-1.1cm) FS (%) 37 %LVDs3.48 (2.0-3.8cm) LVEF (%)66 (>50%) Aortic Valve AoV Peak Rfwaacdn271.9cm/Patel Peak GR.9mmHg Mitral Valve MV E Tfpebhhn78.3cm/sMV A Dgbwouyi741.1cm/sE/A ratio0.7 TDI Lateral E' Peak V10.87cm/sMedial E' Peak V4.35cm/sE/Lateral E'6.7 E/Medial E'16.6 Tricuspid Valve TR Peak [id number]/sTR Peak Gr.19siBsDURK20ikKp LEFT VENTRICLE The left ventricle is normal size. There is mild concentric left ventricular hypertrophy. Left ventricle systolic function is normal. The Ejection Fraction is 65-70%. There is normal LV segmental wall motion. Tissue Doppler imaging reveals abnormal left ventricular diastolic dysfunction. RIGHT VENTRICLE The right ventricle is normal size. There is normal right ventricular wall thickness. The right ventricular systolic function is normal. ATRIA The left atrium is mildly dilated. The right atrium size is normal. The interatrial septum is intact with no evidence for an atrial septal defect. AORTIC VALVE The aortic valve is normal in structure. No aortic regurgitation is present. There is no aortic valvular stenosis. There is no aortic valvular vegetation. MITRAL VALVE The mitral valve is normal in structure. There is no evidence of mitral valve prolapse. There is no mitral valve stenosis. Mitral regurgitation is mild. TRICUSPID VALVE The tricuspid valve is normal in structure. There is trace tricuspid regurgitation. Right ventricular systolic pressure is estimated at less than 30 mmHg. There is no pulmonary hypertension. PULMONIC VALVE The pulmonic valve is not well visualized. There is trace pulmonic valvular regurgitation. GREAT VESSELS The aortic root is normal in size. PERICARDIAL EFFUSION There is no significant pericardial effusion. <Conclusion> Left ventricle systolic function is normal. The Ejection Fraction is 65-70%. Hypertensive heart disease. Diastolic dysfunction. No aortic regurgitation is present. Mitral regurgitation is mild. There is trace tricuspid regurgitation. There is no pulmonary hypertension. There is trace pulmonic valvular regurgitation.
[2018-05-26 19:57] LABS: CALCIUM 6.9 mg/dl (8.6-10.4)
--- NOTE | 2018-05-27 01:44 | PN ---
DATE: 05/25/2018 SUBJECTIVE: The patient feels overall better with less dizziness. PHYSICAL EXAMINATION VITAL SIGNS: Blood pressure was 134/70, temperature 98.4, respiratory rate 20 and pulse 77. HEENT: Pupils equal and reactive to light. Normal-appearing mucosa of the conjunctivae, oropharynx and nasal membrane mucosa. NECK: Supple. No JVD. No carotid bruit. No lymph node. No thyromegaly. CHEST AND LUNGS: Bilateral symmetrical expansion. Good air exchange. No rales, no rhonchi. CARDIOVASCULAR SYSTEM: PMI not localized. S1, S2. No additional sounds. ABDOMEN: Normoactive bowel sounds. No tenderness. No organomegaly. No masses. EXTREMITIES: No cyanosis, no clubbing, no edema. CENTRAL NERVOUS SYSTEM: Alert, awake, oriented x2. Positive right-sided hemiparesis and slurred speech. ASSESSMENT: 1. End-stage renal disease, started on hemodialysis. 2. Cerebrovascular accident with right-sided weakness. 3. Hypertension. Currently, blood pressure is controlled on diet without any medications. Carmella Estrada MD
[2018-05-27 06:38] LABS: BASO % 0.4 % (0.0-2.0); EOS # 0.8 K/uL (0.0-0.7); EOS % 9.3 % (0.0-4.0); HEMOGLOBIN 8.6 g/dL (12.0-18.0); LYMPH % 21.7 % (20.0-40.0); MEAN CELL VOLUME 84.3 fL (80.0-94.0); MEAN CORPUSCULAR HEMOGLOBIN 28.1 pg (27.0-31.0); MEAN CORPUSCULAR HGB CONC 33.4 g/dL (33.0-37.0); MEAN PLATELET VOLUME 8.9 fL (7.2-11.7); MONO % 11.2 % (0.0-10.0); NEUT # 5.2 K/uL (1.8-7.0); NEUT % 57.4 % (50.0-75.0); RBC 3.06 Mil/uL (4.40-5.90); RED CELL DISTRIBUTION WIDTH 15.3 % (11.5-14.5)
[2018-05-27 06:51] LABS: CALCIUM 7.1 mg/dl (8.6-10.4)
--- NOTE | 2018-05-27 07:10 | CP.PCM.PN ---
Subjective - Date & Time of Evaluation Date of Evaluation: 05/27/18 Time of Evaluation: 07:15 - Subjective Subjective: Surgery Progress note. Dr. Rocha service Pt seen and examined at bedside. No acute events overnight. Patient scheduled for cardiac stress test today. OR to be rescheduled after stress test results. Patient denies any new complaints. Objective - Vital Signs/Intake and Output Vital Signs (last 24 hours): Temp Pulse Resp BP Pulse Ox 98.5 F 84 18 150/61 95 05/27/18 00:00 05/27/18 01:00 05/27/18 00:00 05/27/18 00:00 05/27/18 00:00 Intake and Output: 05/27/18 05/27/18 06:59 18:59 Intake Total 350 Output Total 600 Balance -250 - Medications Medications: Current Medications Acetaminophen (Tylenol 325mg Tab) [facility] [place] Last Admin: 05/26/18 09:50 Dose: 650 mg Calcium Acetate (Phoslo) 667 mg PO QPM [facility] Last Admin: 05/26/18 17:38 Dose: 667 mg Doxazosin Mesylate (Cardura) 2 [facility] [place] Last Admin: 05/26/18 09:50 Dose: 2 mg Epoetin Popeye (Procrit) 10,000 unit IV MWF [facility] Last Admin: 05/24/18 15:55 Dose: 10,000 unit Ergocalciferol (Drisdol 50,000 Intl Units Cap) 1 cap PO QWK [facility] Last Admin: 05/21/18 12:52 Dose: Not Given Labetalol HCl (Trandate) 200 mg PO BID [facility] Last Admin: 05/23/18 09:13 Dose: 200 mg Magnesium Oxide (Mag-Ox) 400 [facility] [place] Last Admin: 05/26/18 09:50 Dose: 400 mg Minoxidil (Minoxidil) 2.[address] [facility] Last Admin: 05/26/18 09:50 Dose: 2.5 mg Multivitamins/Minerals (Therapeutic-M Tab) 1 tab PO DAILY [facility] Last Admin: 05/26/18 09:50 Dose: 1 tab Tnnnw-5-Aaiy Ethyl Esters (Lovaza) 1 gm [facility] [place] Last Admin: 05/26/18 09:50 Dose: 1 gm Pantoprazole Sodium (Protonix Ec Tab) 40 mg PO DAILY [facility] Last Admin: 05/26/18 09:50 Dose: 40 mg Sevelamer Carbonate (Renvela) 1,600 mg PO TIDCC [facility] Last Admin: 05/26/18 17:38 Dose: 1,600 mg Vitamin B Complex/Vit C/Folic Acid (Nephro-Nehemias) 1 tab PO 0800 [facility] Last Admin: 05/26/18 08:51 Dose: 1 tab - Labs Labs: 05/27/18 06:27 05/27/18 06:27 PT 12.1 SECONDS (9.7-12.2) 05/24/18 06:24 INR 1.1 05/24/18 06:24 APTT 29 SECONDS (21-34) 05/24/18 06:24 - Constitutional Appears: Well, Non-toxic, No Acute Distress - Head Exam Head Exam: ATRAUMATIC, NORMAL INSPECTION, NORMOCEPHALIC - Eye Exam Eye Exam: EOMI, Normal appearance - ENT Exam ENT Exam: Mucous Membranes Moist - Respiratory Exam Respiratory Exam: NORMAL BREATHING PATTERN. absent: Accessory Muscle Use, Respiratory Distress - Cardiovascular Exam Cardiovascular Exam: absent: JVD - GI/Abdominal Exam GI & Abdominal Exam: Soft. absent: Distended, Firm, Guarding, Rigid, Tendernes s, Rebound - Extremities Exam Extremities Exam: Normal Inspection. absent: Calf Tenderness - Neurological Exam Neurological Exam: Alert, Awake, Oriented x3 - Psychiatric Exam Psychiatric exam: Normal Affect, Normal Mood - Skin Skin Exam: Dry, Intact, Normal Color, Warm Assessment and Plan - Assessment and Plan (Free Text) Assessment: 72yo M with ESRD on HD Plan: - OR to be rescheduled pending cardiac clearance - will f/u cardiology recs - Medically optimize Further recs as per Dr. Aj Salinas PGY2 Surgery
[2018-05-27] MEDS ORDERED: ceFAZolin IV 1 gm in Dextrose 0 GM/0 ML BAG IVPB ONE (07:12)
[2018-05-27] MEDS ORDERED: HEPARIN-NS 5,000 UNITS/500 ML 0 UNIT/0 ML BAG IV ONE (07:13)
[2018-05-27] MEDS ORDERED: Caffeine Citrated **INJ** 20 MG/ML IV ONE (08:18)
[2018-05-27] MEDS: Multivitamin Vitamin B Complex (Nephro-Vite) Tab PO SCH (08:34)
[2018-05-27] MEDS: Pantoprazole 40 mg EC Tab PO SCH ×2 (11:09→12:30)
[2018-05-27] MEDS: Ferrous fumarate/Vit C 65-25 MG TABLET.ER PO SCH ×2 (11:09→12:30)
[2018-05-27] MEDS: Multivitamin With Minerals Tab PO SCH ×2 (11:09→12:30)
[2018-05-27] MEDS: Magnesium Oxide 400 mg Tab UD PO SCH ×2 (11:09→12:30)
[2018-05-27] MEDS: Omega-3-Acid Ethyl Esters 1 GM Cap PO SCH ×2 (11:09→12:30)
--- NOTE | 2018-05-27 12:26 | CP.PCM.PN ---
<Adwoa Shannon - Last Filed: 05/27/18 12:20> Subjective - Date & Time of Evaluation Date of Evaluation: 05/27/18 Time of Evaluation: 12:20 - Subjective Subjective: Cardiology Follow Up Patient was seen and examined at bedside. Patient denied chest pain, shortness of breath, or palpitations. Patient completed first part of Lexiscan. Nuclear studies to follow. Objective - Vital Signs/Intake and Output Vital Signs (last 24 hours): Temp Pulse Resp BP Pulse Ox 98.5 F 68 18 150/61 95 05/27/18 00:00 05/27/18 07:30 05/27/18 00:00 05/27/18 00:00 05/27/18 00:00 Intake and Output: 05/27/18 05/27/18 06:59 18:59 Intake Total 350 Output Total 600 Balance -250 - Medications Medications: Current Medications Acetaminophen (Tylenol 325mg Tab) 650 mg PO QAM [facility] Last Admin: 05/27/18 11:09 Dose: Not Given Calcium Acetate (Phoslo) 667 mg PO QPM [facility] Last Admin: 05/26/18 17:38 Dose: 667 mg Doxazosin Mesylate (Cardura) 2 mg PO QAM [facility] Last Admin: 05/27/18 11:10 Dose: Not Given Epoetin Popeye (Procrit) 10,000 unit IV MWF [facility] Last Admin: 05/24/18 15:55 Dose: 10,000 unit Ergocalciferol (Drisdol 50,000 Intl Units Cap) 1 cap PO QWK [facility] Last Admin: 05/21/18 12:52 Dose: Not Given Labetalol HCl (Trandate) 200 mg PO BID [facility] Last Admin: 05/23/18 09:13 Dose: 200 mg Magnesium Oxide (Mag-Ox) 400 mg PO QAM [facility] Last Admin: 05/27/18 11:09 Dose: Not Given Minoxidil (Minoxidil) 2.5 mg PO QAM [facility] Last Admin: 05/27/18 11:09 Dose: Not Given Multivitamins/Minerals (Therapeutic-M Tab) 1 tab PO DAILY [facility] Last Admin: 05/27/18 11:09 Dose: Not Given Ssine-2-Keru Ethyl Esters (Lovaza) [facility] [place] Last Admin: 05/27/18 11:09 Dose: Not Given Pantoprazole Sodium (Protonix Ec Tab) 40 mg PO DAILY [facility] Last Admin: 05/27/18 11:09 Dose: Not Given Sevelamer Carbonate (Renvela) 1,600 mg PO TIDCC [facility] Last Admin: 05/27/18 08:34 Dose: Not Given Vitamin B Complex/Vit C/Folic Acid (Nephro-Nehemias) 1 tab PO 0800 [facility] Last Admin: 05/27/18 08:34 Dose: Not Given - Labs Labs: 05/27/18 06:27 05/27/18 06:27 PT 12.1 SECONDS (9.7-12.2) 05/24/18 06:24 INR 1.1 05/24/18 06:24 APTT 29 SECONDS (21-34) 05/24/18 06:24 - Constitutional Appears: No Acute Distress - Head Exam Head Exam: NORMAL INSPECTION, NORMOCEPHALIC - Eye Exam Eye Exam: EOMI, PERRL Pupil Exam: NORMAL ACCOMODATION - ENT Exam ENT Exam: Mucous Membranes Moist - Respiratory Exam Respiratory Exam: Clear to Ausculation Bilateral, NORMAL BREATHING PATTERN. absent: Rales, Rhonchi, Wheezes - Cardiovascular Exam Cardiovascular Exam: +S1, +S2. absent: Irregular Rhythm, JVD, Murmur - GI/Abdominal Exam GI & Abdominal Exam: Soft, Normal Bowel Sounds. absent: Distended, Tenderness - Extremities Exam Extremities Exam: Normal Inspection. absent: Pedal Edema, Tenderness - Neurological Exam Neurological Exam: Alert, Awake, Oriented x3 - Psychiatric Exam Psychiatric exam: Normal Affect, Normal Mood - Skin Skin Exam: Dry, Intact, Normal Color, Warm Assessment and Plan - Assessment and Plan (Free Text) Plan: ESRD on HD Cardiac clearance for AVF Imaging: - EKG: NSR @ 80 BPM, incomplete LBBB - ECHO: Diastolic Heart Failure with LVEF 60%, hypertensive heart disease - Stress test: pending nuclear images Management: - Pending nuclear images, for clearance Case discussed with Adwoa Nowak DO, PGY2 <Juancho Esposito - Last Filed: 05/27/18 22:31> Objective - Vital Signs/Intake and Output Vital Signs (last 24 hours): Temp Pulse Resp BP Pulse Ox 97.2 F L 75 18 108/59 L 94 L 05/27/18 21:03 05/27/18 22:05 05/27/18 22:05 05/27/18 22:05 05/27/18 21:03 - Medications Medications: Current Medications Acetaminophen (Tylenol 325mg Tab) 650 mg PO QAM [facility] Last Admin: 05/27/18 12:30 Dose: 650 mg Doxazosin Mesylate (Cardura) 2 mg PO QAM [facility] Last Admin: 05/27/18 12:29 Dose: 2 mg Epoetin Popeye (Procrit) 10,000 unit IV MWF [facility] Last Admin: 05/27/18 19:58 Dose: 10,000 unit Ergocalciferol (Drisdol 50,000 Intl Units Cap) 1 cap PO QWK [facility] Last Admin: 05/21/18 12:52 Dose: Not Given Labetalol HCl (Trandate) 200 mg PO BID [facility] Last Admin: 05/23/18 09:13 Dose: 200 mg Labetalol HCl (Trandate) 200 mg PO Q12 [facility] Last Admin: 05/27/18 20:30 Dose: 200 mg Magnesium Oxide (Mag-Ox) 400 [facility] [place] Last Admin: 05/27/18 12:30 Dose: 400 mg Minoxidil (Minoxidil) 2.5 mg [facility] [place] Last Admin: 05/27/18 12:30 Dose: 2.5 mg Multivitamins/Minerals (Therapeutic-M Tab) 1 tab PO DAILY [facility] Last Admin: 05/27/18 12:30 Dose: 1 tab Fbjsk-6-Ftjd Ethyl Esters (Lovaza) 1 gm PO QAM [facility] Last Admin: 05/27/18 12:30 Dose: 1 gm Pantoprazole Sodium (Protonix Ec Tab) 40 mg PO DAILY [facility] Last Admin: 05/27/18 12:30 Dose: 40 mg Sevelamer Carbonate (Renvela) 1,600 mg PO TIDCC [facility] Last Admin: 05/27/18 21:31 Dose: 1,600 mg Vitamin B Complex/Vit C/Folic Acid (Nephro-Nehemias) 1 tab PO 0800 [facility] Last Admin: 05/27/18 08:34 Dose: Not Given - Labs Labs: 05/27/18 06:27 05/27/18 06:27 PT 12.1 SECONDS (9.7-12.2) 05/24/18 06:24 INR 1.1 05/24/18 06:24 APTT 29 SECONDS (21-34) 05/24/18 06:24 Assessment and Plan - Assessment and Plan (Free Text) Plan: Patient with normal stress test and Normal EF Moderate cardiac risk for AVF under general anaesthesia Since benefit outweighs the risk please proceed with the surgery
--- NOTE | 2018-05-27 19:09 | CP.PCM.PN ---
Subjective - Date & Time of Evaluation Date of Evaluation: 05/27/18 Time of Evaluation: 15:00 - Subjective Subjective: ALL PREVIOUS EMR REVIEWED HAD HIS HD TODAY .. ON M W F FEELS IMPROVED Objective - Vital Signs/Intake and Output Vital Signs (last 24 hours): Temp Pulse Resp BP Pulse Ox 97.1 F L 73 20 167/76 H 99 05/27/18 15:00 05/27/18 17:19 05/27/18 15:00 05/27/18 15:00 05/27/18 15:00 - Medications Medications: Current Medications Acetaminophen (Tylenol 325mg Tab) 650 mg PO QAM [facility] Last Admin: 05/27/18 12:30 Dose: 650 mg Doxazosin Mesylate (Cardura) 2 mg PO QAM [facility] Last Admin: 05/27/18 12:29 Dose: 2 mg Epoetin Popeye (Procrit) 10,000 unit IV MWF [facility] Last Admin: 05/24/18 15:55 Dose: 10,000 unit Ergocalciferol (Drisdol 50,000 Intl Units Cap) 1 cap PO QWK [facility] Last Admin: 05/21/18 12:52 Dose: Not Given Labetalol HCl (Trandate) 200 mg PO BID [facility] Last Admin: 05/23/18 09:13 Dose: 200 mg Magnesium Oxide (Mag-Ox) 400 mg PO QAM [facility] Last Admin: 05/27/18 12:30 Dose: 400 mg Minoxidil (Minoxidil) 2.5 mg PO QAM [facility] Last Admin: 05/27/18 12:30 Dose: 2.5 mg Multivitamins/Minerals (Therapeutic-M Tab) 1 tab PO DAILY [facility] Last Admin: 05/27/18 12:30 Dose: 1 tab Aatlu-5-Yzcw Ethyl Esters (Lovaza) 1 gm PO QAM [facility] Last Admin: 05/27/18 12:30 Dose: 1 gm Pantoprazole Sodium (Protonix Ec Tab) 40 mg PO DAILY [facility] Last Admin: 05/27/18 12:30 Dose: 40 mg Sevelamer Carbonate (Renvela) 1,600 mg PO TIDCC [facility] Last Admin: 05/27/18 12:30 Dose: 1,600 mg Vitamin B Complex/Vit C/Folic Acid (Nephro-Nehemias) 1 tab PO 0800 [facility] Last Admin: 05/27/18 08:34 Dose: Not Given - Labs Labs: 05/27/18 06:27 05/27/18 06:27 PT 12.1 SECONDS (9.7-12.2) 05/24/18 06:24 INR 1.1 05/24/18 06:24 APTT 29 SECONDS (21-34) 05/24/18 06:24 Assessment and Plan - Assessment and Plan (Free Text) Assessment: ESRD ON HD M W F .. TO BE C/O ANEMIA OF CKD .. RECIEVED 2 U PRBC ON HD .. ON EPO HTN OLD CVA 2/2 UNCONTROLED HTN P : C/O HD CARDIAC WORK APRECIATED C/O CURRENT CARE FOR AVF FOE OUT PT HD SPOT
[2018-05-27] MEDS: Epoetin Alfa 10,000 unit/ml Dialysis IV SCH (19:58)
--- NOTE | 2018-05-27 23:42 | PN ---
DATE: 05/27/2018 DAILY PROGRESS NOTE SUBJECTIVE: The patient is seen today, 05/27/2018. PHYSICAL EXAMINATION: VITAL SIGNS: During hemodialysis, blood pressure is 167/76, temperature 97.1, respiratory rate 20, and pulse 73. HEENT: Pupils equal and reactive to light. Normal-appearing mucosa of the conjunctivae, oropharynx and nasal membrane mucosa. NECK: Supple. No JVD. No carotid bruit. No lymph node. No thyromegaly. CHEST AND LUNGS: Bilateral symmetrical expansion. Good air exchange. No rales. No rhonchi. CARDIOVASCULAR SYSTEM: PMI not localized. S1 and S2. No additional sounds. ABDOMEN: Normoactive bowel sounds. No tenderness. No organomegaly. No masses. EXTREMITIES: No cyanosis, no clubbing, no edema. CENTRAL NERVOUS SYSTEM: Alert, awake, oriented x2 with right-sided hemiparesis and slurred speech. ASSESSMENT: End-stage renal disease and was started on hemodialysis, cerebrovascular accident with right-sided hemiparesis, hypertension. PLAN: Fistula placement after cardiology clearance. Carmella Estrada MD
--- NOTE | 2018-05-28 05:41 | CARD ---
APPROVED REPORT Date of service: 05/27/2018 Protocol: LEXISCAN Test Type: LEXISCAN STRESS Test Indications: PRE OP Medications: LIST Target HR: 148 bpm Resting ECG: NSR W/ NS ST T CHANGES W/ IVCD Resting Heart Rate: 75 bpm Resting Blood Pressure: 132/80mmHg submaximum (85%): 126 bpm TEST SUMMARY [id number]:01..1.078/.0. PREINFSNHYPERV.05:330.00.01.525044/80.0. INFUSIONDOSE 100:300.00.01.075/.0. [id number]:[id number]/80.0. PROCEDURE Pharmacologic stress testing was performed using 0.4mg per 5ml of regadenoson given intravenously over 7-10 seconds. POST EXERCISE Reason for Termination: Protocol Completed Target HR: No Max HR: 75 bpm 66% of Maximum Predicted HR: 148 bpm Exercise duration: 00:30 min:sec, 0 Stage Exercise capacity: 1.0METs Max Blood Pressure: 134/80mmHg Blood Pressure response to exercise: normal resting BP - appropriate response Heart Rate response to exercise: appropriate Chest Pain: No, none Angina index: 0 Arrhythmia: No, none ST Change: No, none FROM BASELINE Deviation: 0 mm INTERPRETATION Stress EKG Conclusion: NEGATIVE LEXISCAN STRESS TEST NORMAL BP RESPONSE TO LEXISCAN NUCLEAR STUDIES TO BE READ SEPARATELY EXAM: Myocardial Perfusion STRESS/REST Imaging Protocol The imaging protocol used to acquire images was Stress Tc-99m/rest Tc-99m 1 day Stress Spect myocardial perfusion imaging was performed in supine position 41 minutes following the injection of 12.9 mCi of Tc-99 Myoview. Gated Rest Spect was performed 45 minutes after intravenous 33 mCi Tc-99 Myoview injection. The images were gated to evaluate regional wall motion and calculate ventricular ejection fraction.Images were reconstructed using backfilter projection method in short horizontal and verticle long axis. Spect slices were generated. RESTING DATA XEW191.26unVZ0.40L/min ESV50.00mlMyocardial Mdqd822.00g Av. Heart Rate82.00bpm EF61.00% STRESS DATA JUR178.97leIQ8.60L/min ESV56.00mlMyocardial Dwgh588.00g EF58.00% Regional WT score at stress:3.00 Regional WM score at stress:0.00 Summed WT score at stress:24.00 Av. Heart Rate86.00bpmSummed WM score at stress:2.00 LV Perf. Quant 17 Seg. SSS0.00 17 Seg. SRS0.00 17 Seg. SDS0.00 Stress Defect Extent (% LAD)0.00Rest Defect Extent (% LAD)0.00Rev. Defect Extent (% LAD)0.00 Stress Defect Extent (% LCX)13.80Rest Defect Extent (% LCX)7.50Rev. Defect Extent (% LCX)0.00 Stress Defect Extent (% RCA)0.00Rest Defect Extent (% RCA)0.00Rev. Defect Extent (% RCA)0.00 Stress Defect Extent (% ONEYDA)2.40Rest Defect Extent (% ONEYDA)1.30Rev. Defect Extent (% ONEYDA)0.00 IMPRESSION Normal Myocardial Perfusion exercise stress study Left Ventricle LV Function:Left ventricle systolic function is normal. The Ejection Fraction is 55-60%. Regional Wall Motion:No regional wall motion abnormalities noted. Metabolism/Perfusion There are no defects. There are no perfusion/metabolism defects. Conclusion 1. There is no scan evidence of stress-induced reversible ischemia noted. 2. Left ventricle systolic function is normal. 3. The Ejection Fraction is 55-60%.
[2018-05-28 06:53] LABS: HEMOGLOBIN 8.6 g/dL (12.0-18.0); MEAN CELL VOLUME 85.1 fL (80.0-94.0); MEAN CORPUSCULAR HEMOGLOBIN 28.1 pg (27.0-31.0); MEAN PLATELET VOLUME 8.7 fL (7.2-11.7); RBC 3.05 Mil/uL (4.40-5.90); RED CELL DISTRIBUTION WIDTH 15.4 % (11.5-14.5); WHITE BLOOD COUNT 8.5 K/uL (4.8-10.8)
[2018-05-28 07:37] LABS: CALCIUM 7.6 mg/dl (8.6-10.4)
[2018-05-28] MEDS: Multivitamin Vitamin B Complex (Nephro-Vite) Tab PO SCH ×2 (08:18→15:02)
[2018-05-28] MEDS: Multivitamin With Minerals Tab PO SCH ×2 (10:00→11:29)
[2018-05-28] MEDS: Pantoprazole 40 mg EC Tab PO SCH ×2 (10:00→11:29)
[2018-05-28] MEDS: Ergocalciferol 50,000 Intl Units Cap PO SCH ×2 (11:29→15:03)
[2018-05-28] MEDS: Magnesium Oxide 400 mg Tab UD PO SCH ×2 (11:29→15:02)
[2018-05-28] MEDS: Omega-3-Acid Ethyl Esters 1 GM Cap PO SCH ×2 (11:29→15:02)
--- NOTE | 2018-05-28 16:15 | CP.PCM.PN ---
Subjective - Date & Time of Evaluation Date of Evaluation: 05/28/18 Time of Evaluation: 15:00 - Subjective Subjective: SEEN ON RENAL F/U FEELS BETTER ON HD M W F AWAITING CARDIAC CLEARANCE FOR AVF Objective - Vital Signs/Intake and Output Vital Signs (last 24 hours): Temp Pulse Resp BP Pulse Ox 97.4 F L 79 20 186/79 H 98 05/28/18 15:00 05/28/18 15:00 05/28/18 15:00 05/28/18 15:00 05/28/18 15:00 Intake and Output: 05/28/18 05/28/18 06:59 18:59 Intake Total 200 Output Total 1000 Balance -800 - Medications Medications: Current Medications Acetaminophen (Tylenol 325mg Tab) [facility] [place] Last Admin: 05/28/18 09:16 Dose: Not Given Doxazosin Mesylate (Cardura) 2 [facility] [place] Last Admin: 05/28/18 15:03 Dose: 2 mg Epoetin Ppoeye (Procrit) 10,000 unit IV MWF [facility] Last Admin: 05/27/18 19:58 Dose: 10,000 unit Ergocalciferol (Drisdol 50,000 Intl Units Cap) 1 cap PO QWK [facility] Last Admin: 05/28/18 15:03 Dose: 1 cap Labetalol HCl (Trandate) 200 mg PO BID [facility] Last Admin: 05/23/18 09:13 Dose: 200 mg Labetalol HCl (Trandate) 200 mg PO Q12 [facility] Last Admin: 05/28/18 09:31 Dose: Not Given Magnesium Oxide (Mag-Ox) 400 [facility] [place] Last Admin: 05/28/18 15:02 Dose: 400 mg Minoxidil (Minoxidil) 2.5 mg [facility] [place] Last Admin: 05/28/18 15:01 Dose: 2.5 mg Multivitamins/Minerals (Therapeutic-M Tab) 1 tab PO DAILY [facility] Last Admin: 05/28/18 10:00 Dose: Not Given [place]fagg-6-Icip Ethyl Esters (Lovaza) 1 gm PO QAM [facility] Last Admin: 05/28/18 15:02 Dose: 1 gm Pantoprazole Sodium (Protonix Ec Tab) 40 mg PO DAILY [facility] Last Admin: 05/28/18 10:00 Dose: Not Given Sevelamer Carbonate (Renvela) 1,600 mg PO TIDCC [facility] Last Admin: 05/28/18 12:35 Dose: Not Given Vitamin B Complex/Vit C/Folic Acid (Nephro-Nehemias) 1 tab PO 0800 [facility] Last Admin: 05/28/18 15:02 Dose: 1 tab - Labs Labs: 05/28/18 06:44 05/28/18 06:44 PT 12.1 SECONDS (9.7-12.2) 05/24/18 06:24 INR 1.1 05/24/18 06:24 APTT 29 SECONDS (21-34) 05/24/18 06:24 Assessment and Plan - Assessment and Plan (Free Text) Assessment: ESRD ON HD M W F ANEMIA OF CKD ..RECIEVED 2 U PRBC .. ON EPO ELECTROLYTES ABN .. RECIEVED HD HTN OLD CVA P : C/O PRESENT CARE C/O CURRENT MEDS
[2018-05-28 20:14] LABS: ALB/GLOB RATIO 1.2 (1.0-2.1); ALBUMIN 3.7 g/dL (3.5-5.0); CALCIUM 7.4 mg/dl (8.6-10.4)
--- NOTE | 2018-05-29 02:55 | PN ---
DATE: 05/28/2018 SUBJECTIVE: The patient is seen today, 05/28/2018. He is not in any cardiopulmonary distress. The patient was supposed to go OR for AV fistula today, but he was called to the operating room. PHYSICAL EXAMINATION: VITAL SIGNS: Blood pressure 186/79, temperature 97.4, respiratory rate 20, and pulse 79. HEENT: Pupils equal, reactive to light. Normal-appearing mucosa of the conjunctivae, oropharynx, and nasal membrane mucosa. NECK: Supple. No JVD. No carotid bruit. No lymph node. No thyromegaly. CHEST AND LUNGS: Bilateral symmetrical expansion. Good air exchange. No rales. No rhonchi. CARDIOVASCULAR SYSTEM: PMI not localized. S1, S2. No additional sounds. ABDOMEN: Normoactive bowel sounds. No tenderness. No organomegaly. No masses. EXTREMITIES: No cyanosis, no clubbing, no edema. CENTRAL NERVOUS SYSTEM: Alert, awake, oriented x2. Right-sided hemiparesis. ASSESSMENT: Cerebrovascular accident with right-sided hemiparesis, end-stage renal disease, started on hemodialysis. PLAN: Continue current hemodialysis, and the patient is for AV fistula. Continue current management, and the patient is re-scheduled to have AV fistula placed tomorrow. Continue current medications. Carmella Estrada MD
[2018-05-29] MEDS ORDERED: HEPARIN-NS 5,000 UNITS/500 ML 5,000 UNIT/500 ML BAG IV ONE (07:07)
[2018-05-29] MEDS ORDERED: ceFAZolin IV 1 gm in Dextrose 2 GM/100 ML BAG IVPB ONE (07:07)
[2018-05-29] MEDS: Multivitamin Vitamin B Complex (Nephro-Vite) Tab PO SCH (08:07)
[2018-05-29] MEDS ORDERED: Propofol 10 mg/ml Inj (20 ML) ONE (09:31)
[2018-05-29] MEDS ORDERED: Midazolam 2 MG/2 ML VIAL ONE (09:32)
[2018-05-29] MEDS: Magnesium Oxide 400 mg Tab UD PO SCH (10:43)
[2018-05-29] MEDS: Omega-3-Acid Ethyl Esters 1 GM Cap PO SCH (10:43)
[2018-05-29] MEDS: Multivitamin With Minerals Tab PO SCH (10:44)
[2018-05-29] MEDS: Pantoprazole 40 mg EC Tab PO SCH (10:44)
[2018-05-29] MEDS ORDERED: ePHEDrine 50 mg/ml Inj ONE (10:47)
[2018-05-29] MEDS ORDERED: Neostigmine Methylsulfate 3mg/3ml Syringe IV ONE (10:53)
--- NOTE | 2018-05-29 10:56 | PCM.SURG1 ---
Surgeon's Initial Post Op Note - Surgeon's Notes Surgeon: jorge Acquisition Editor: 0 Type of Anesthesia: General LMA Anesthesia Administered By: clara Pre-Operative Diagnosis: renal failure Operative Findings: positive pulse and thrill Post-Operative Diagnosis: same Operation Performed: brachiocephalic avf left elbow Specimen/Specimens Removed: 0 Estimated Blood Loss: EBL {In ML}: 15 Blood Products Given: N/A Drains Used: No Drains Post-Op Condition: Good Date of Surgery/Procedure: 05/29/18 Time of Surgery/Procedure: 10:57
[2018-05-29] MEDS ORDERED: HYDROmorphone 0.5 mg/0.5 ml ISec IVP PRN (11:00)
[2018-05-29] MEDS: Epoetin Alfa 10,000 unit/ml Dialysis IV SCH (15:01)
[2018-05-29] MEDS: Oxycodone/Acetaminophen 5/325 mg Tab PO PRN (19:04)
--- NOTE | 2018-05-29 19:57 | OP ---
PROCEDURE DATE: 05/29/2018 PREOPERATIVE DIAGNOSIS: Renal failure. POSTOPERATIVE DIAGNOSIS: Renal failure. PROCEDURE CARRIED OUT: Brachiocephalic fistula, left arm, bidirectional. SURGEON: Tj Rocha Jr., MD ASSISTANTS: None. ANESTHESIA: General. ANESTHESIOLOGIST: Tiffanie Candelaria CRNA INDICATIONS FOR PROCEDURE: The patient is an older man, recently started on dialysis, who requires a fistula for permanent access. OPERATIVE FINDINGS: At the end of the procedure, there was excellent to the fistula as evidenced by a palpable thrill and there was good pulse at the wrist. DESCRIPTION OF PROCEDURE: The veins were marked on the skin prior to beginning the procedure as well as the adjacent artery. An end-to-side fistula was carried out using the loupe magnification and heparin anticoagulation just proximal to the bifurcation. The patient was given general anesthesia and intravenous antibiotics. Venodyne boots were applied. The vein was exposed, the artery was exposed. An end-to-side fistula using loupe magnification and heparin anticoagulation was carried out. After completion of the fistula, there was good flow to the fistula and there was a palpable pulse at the wrist. After obtaining hemostasis, we closed the wounds. We checked the hand for hemostasis and it was excellent. We then closed the wounds and applied nylon sutures to the skin. Blood loss was less than 20 mL. Operation carried out was brachiocephalic fistula, left elbow. Tj Rocha Jr., MD cc: Claudio Greene MD
--- NOTE | 2018-05-30 00:49 | PN ---
DATE: 05/29/2018 DAILY PROGRESS NOTE SUBJECTIVE: The patient is seen today, 05/29/2018. He is not in any cardiopulmonary distress. PHYSICAL EXAMINATION: VITAL SIGNS: With a blood pressure of 156/68, temperature 98, respiratory rate 20, and pulse 82. HEENT: Pupils equal and reactive to light. Normal-appearing mucosa of the conjunctivae, oropharynx and nasal membrane mucosa. NECK: Supple. No JVD. No carotid bruit. No lymph node. No thyromegaly. CHEST AND LUNGS: Bilateral symmetrical expansion. Good air exchange. No rales. No rhonchi. CARDIOVASCULAR SYSTEM: PMI not localized. S1 and S2. No additional sounds. ABDOMEN: Normoactive bowel sounds. No tenderness. No organomegaly. No masses. EXTREMITIES: No cyanosis, no clubbing, no edema. CENTRAL NERVOUS SYSTEM: Alert, awake, oriented x2. Right-sided hemiparesis with slurred speech. ASSESSMENT: End-stage renal disease, started on hemodialysis; hypertension; cerebrovascular accident with right-sided hemiparesis, status post fistula placement on the left arm. PLAN: Follow up with social service regarding dialysis schedule and once established, the patient can be discharged home. Carmella Estrada MD
--- NOTE | 2018-05-30 07:25 | CP.PCM.PN ---
Subjective - Date & Time of Evaluation Date of Evaluation: 05/30/18 Time of Evaluation: 06:30 - Subjective Subjective: Surgery Progress note. Dr. Rocha Pt seen and examined at bedside. No acute events overnight. Tolerating diet. No N/V/D. Pain well tolerated. AVF with palpable thrill. No other complaints noted. Objective - Vital Signs/Intake and Output Vital Signs (last 24 hours): Temp Pulse Resp BP Pulse Ox 99 F 77 20 179/77 H 95 05/30/18 03:56 05/30/18 05:05 05/30/18 05:05 05/30/18 05:05 05/30/18 03:56 - Medications Medications: Current Medications Acetaminophen (Tylenol 325mg Tab) 650 mg PO [facility] [place] Last Admin: 05/29/18 10:44 Dose: Not Given Doxazosin Mesylate (Cardura) 2 mg PO [facility] Last Admin: 05/29/18 10:43 Dose: Not Given Epoetin Popeye (Procrit) 10,000 unit IV MWF [facility] Last Admin: 05/29/18 15:01 Dose: 10,000 unit Ergocalciferol (Drisdol 50,000 Intl Units Cap) 1 cap PO QWK [facility] Last Admin: 05/28/18 15:03 Dose: 1 cap Labetalol HCl (Trandate) 200 mg PO BID [facility] Last Admin: 05/23/18 09:13 Dose: 200 mg Labetalol HCl (Trandate) 200 mg PO Q12 [facility] Last Admin: 05/29/18 22:30 Dose: 200 mg Magnesium Oxide (Mag-Ox) 400 mg PO [facility] Last Admin: 05/29/18 10:43 Dose: Not Given Minoxidil (Minoxidil) 2.5 mg PO [facility] Last Admin: 05/29/18 10:43 Dose: Not Given Multivitamins/Minerals (Therapeutic-M Tab) 1 tab PO DAILY [facility] Last Admin: 05/29/18 10:44 Dose: Not Given Mafbm-0-Vprr Ethyl Esters (Lovaza) [facility] [place] Last Admin: 05/29/18 10:43 Dose: Not Given Oxycodone/Acetaminophen (Percocet 5/325 Mg Tab) 1 tab PO Q4H PRN PRN Reason: Pain, moderate (4-7) Stop: 06/01/18 10:58 Last Admin: 05/29/18 19:04 Dose: 1 tab Pantoprazole Sodium (Protonix Ec Tab) 40 mg PO DAILY [facility] Last Admin: 05/29/18 10:44 Dose: Not Given Sevelamer Carbonate (Renvela) 1,600 mg PO TIDCC [facility] Last Admin: 05/29/18 18:56 Dose: 1,600 mg Vitamin B Complex/Vit C/Folic Acid (Nephro-Nehemias) 1 tab PO 0800 [facility] Last Admin: 05/29/18 08:07 Dose: Not Given - Labs Labs: 05/28/18 06:44 05/28/18 19:17 PT 12.1 SECONDS (9.7-12.2) 05/24/18 06:24 INR 1.1 05/24/18 06:24 APTT 29 SECONDS (21-34) 05/24/18 06:24 - Constitutional Appears: Well, Non-toxic, No Acute Distress - Head Exam Head Exam: ATRAUMATIC, NORMAL INSPECTION, NORMOCEPHALIC - Eye Exam Eye Exam: EOMI, Normal appearance - ENT Exam ENT Exam: Mucous Membranes Moist - Respiratory Exam Respiratory Exam: NORMAL BREATHING PATTERN. absent: Accessory Muscle Use, Respiratory Distress - Cardiovascular Exam Cardiovascular Exam: absent: JVD - GI/Abdominal Exam GI & Abdominal Exam: Soft. absent: Distended, Guarding, Tenderness, Rebound - Extremities Exam Additional comments: Left AVF with dressing clean, dry and intact. Good palpable thrill - Neurological Exam Neurological Exam: Alert, Awake, Oriented x3 - Psychiatric Exam Psychiatric exam: Normal Affect, Normal Mood - Skin Skin Exam: Dry, Intact, Normal Color, Warm Assessment and Plan - Assessment and Plan (Free Text) Assessment: 72yo M s/p L AVF. POD 1 Plan: - Patient is cleared for discharge at the primary team's discretion - Follow up with Dr. Rocha in clinic in 7-10 days. Call for appointment Further recs as per Dr. Aj Salinas PGY 2 Surgery
[2018-05-30] MEDS: Multivitamin Vitamin B Complex (Nephro-Vite) Tab PO SCH (08:27)
[2018-05-30] MEDS: Pantoprazole 40 mg EC Tab PO SCH (10:40)
[2018-05-30] MEDS: Multivitamin With Minerals Tab PO SCH (10:40)
[2018-05-30] MEDS: Magnesium Oxide 400 mg Tab UD PO SCH (10:40)
[2018-05-30] MEDS: Omega-3-Acid Ethyl Esters 1 GM Cap PO SCH (12:45)
[2018-05-30] MEDS: Oxycodone/Acetaminophen 5/325 mg Tab PO PRN (14:02)
--- NOTE | 2018-05-30 15:42 | CT ---
Date of service: 05/30/2018 PROCEDURE: CT Abdomen and Pelvis with Oral contrast. HISTORY: Abdominal pain. Nausea and vomiting. COMPARISON: No prior study available for comparison. TECHNIQUE: Contiguous axial images of the abdomen and pelvis performed without oral or intravenous contrast material. Additional 2D sagittal and coronal reformats generated. Radiation dose: Total exam DLP = 1093.64 mGy-cm. This CT exam was performed using one or more of the following dose reduction techniques: Automated exposure control, adjustment of the mA and/or kV according to patient size, and/or use of iterative reconstruction technique. FINDINGS: LOWER THORAX: Heart is enlarged. There is a moderate-sized pericardial effusion. Mild passive/dependent type atelectasis both posterior lower lung zones with additional ground-glass opacities. There also localized areas of irregular scarring in the both lung bases and lingular/middle lobe regions.. No evidence of effusion or basilar pneumothorax. LIVER: Liver exhibits normal size measuring approximately 13 cm in CC dimension. No obvious hepatic mass collection or calcification identified on this noncontrast exam. GALLBLADDER AND BILE DUCTS: The gallbladder is physiologically distended. No evidence of intraluminal gallbladder calculi.. PANCREAS: The pancreas is atrophic and fatty replaced. There are a few scattered pancreatic calcifications possibly representing sequela of chronic pancreatitis. Clinical correlation recommended. No obvious pancreatic masses or collections. SPLEEN: Spleen exhibits normal size and attenuation pattern without masses collections or calcifications.. ADRENALS: No gross adrenal lesions. KIDNEYS AND URETERS: Moderate to fairly significant atrophic. The left kidney appears changes of the right kidney with multiple small cysts.. Small hyperdense lesion upper pole right kidney possibly representing hyperdense cyst. Left kidney appears slightly less atrophic however there are several hyperdense partially exophytic foci seen possibly representing hyperdense cysts however correlation with ultrasound recommended to exclude the possibility of solid lesions .. There is also an exophytic hypodense cyst upper pole left kidney. BLADDER: Urinary bladder is physiologically distended. No evidence of intraluminal urinary bladder calculi.. REPRODUCTIVE: Prostate gland unremarkable. APPENDIX: Unremarkable. BOWEL: Evaluation of the bowel is somewhat limited due to the lack of oral contrast material. The stomach is moderate to significantly distended with fluid some food debris and air suggesting a gastro paresis. There are multiple distended loops of proximal/mid small bowel with what appears to represent a transition zone in the right mid to lower abdomen. Findings may represent partial and or intermittent small bowel. Early complete obstruction should be excluded with followup studies. Stool and air seen throughout the large bowel suggesting mild fecal retention/constipation.. There are multiple colonic diverticula, the bulk of which arise from the descending and sigmoid colon. No radiographic evidence to suggest acute diverticulitis at this time of. Mild wall thickening of the rectum which could be due to incomplete distention however correlation with colonoscopy may be prudent to exclude the possibility of a rectal wall lesion. Normal appendix best seen on coronal series 601 image# [id number] PERITONEUM: Unremarkable. No fluid collection. No free air. Small fat containing umbilical hernia. There are also small fat containing bilateral inguinal hernias. LYMPH NODES: .Few small nonspecific retroperitoneal lymph nodes are present VASCULATURE: No aortic aneurysm. Mild moderate aortic atherosclerotic calcification or mural plaque present. BONES: Multilevel degenerative spondylosis of the lower thoracic and lumbar spine. There are no acute compression fractures no retropulsed fragments. OTHER FINDINGS: None. IMPRESSION: There are multiple distended loops of proximal and mid small bowel with collapse of the distal small bowel and possible transition point in the right mid to lower abdomen. Findings could represent partial and or intermittent small bowel obstruction. Followup studies recommended to exclude a early complete small bowel obstruction. Findings consistent with constipation. Diverticulosis with no definitive radiographic evidence of acute diverticulitis. Mild rectal wall thickening could be due to incomplete distention however correlation with colonoscopy recommended to exclude rectal wall lesion. . Moderate atrophy of the right kidney with mild atrophy left kidney. There are several small right the renal hypodense cysts with at least 1 hyperdense appearing lesion upper pole right kidney. Exophytic cyst upper pole left kidney several hyperdense lesions left kidney. Findings probably represent hyperdense cysts however followup ultrasound could confirm and exclude any solid components. There appear to be a few scattered pancreatic calcifications suggesting sequela of of chronic pancreatitis. Cardiomegaly with moderate-sized pericardial effusion.
[2018-05-30] MEDS ORDERED: Dextrose 5%/0.45% NS 1,000 ML IV SCH (17:15)
--- NOTE | 2018-05-30 19:43 | CP.PCM.PN ---
Subjective - Date & Time of Evaluation Date of Evaluation: 05/30/18 Time of Evaluation: 14:00 - Subjective Subjective: ON HD M W F .. TOLERATING WELL ANEMIA OF CKD .. RECIEVED 2 U PRBC WHILE ON HD ELECTROLYTES ABN .. HYPER KALEMIA .. ON HD ALL PREVIOUS EMR REVIEWED Objective - Vital Signs/Intake and Output Vital Signs (last 24 hours): Temp Pulse Resp BP Pulse Ox 98.3 F 91 H 20 137/79 93 L 05/30/18 16:24 05/30/18 16:24 05/30/18 16:24 05/30/18 16:24 05/30/18 16:24 Intake and Output: 05/30/18 05/31/18 18:59 06:59 Intake Total 600 Output Total 1300 Balance -700 - Medications Medications: Current Medications Acetaminophen (Tylenol 325mg Tab) [facility] [place] Last Admin: 05/30/18 10:43 Dose: Not Given Doxazosin Mesylate (Cardura) 2 [facility] [place] Last Admin: 05/30/18 10:40 Dose: 2 mg Epoetin Popeye (Procrit) 10,000 unit IV MWF [facility] Last Admin: 05/29/18 15:01 Dose: 10,000 unit Ergocalciferol (Drisdol 50,000 Intl Units Cap) 1 cap PO QWK [facility] Last Admin: 05/28/18 15:03 Dose: 1 cap Labetalol HCl (Trandate) 200 mg PO BID [facility] Last Admin: 05/23/18 09:13 Dose: 200 mg Labetalol HCl (Trandate) 200 mg PO Q12 [facility] Last Admin: 05/30/18 10:41 Dose: 200 mg Magnesium Oxide (Mag-Ox) 400 mg PO QAM [facility] Last Admin: 05/30/18 10:40 Dose: 400 mg Minoxidil (Minoxidil) 2.5 mg PO QAM [facility] Last Admin: 05/30/18 10:42 Dose: 2.5 mg Multivitamins/Minerals (Therapeutic-M Tab) 1 tab PO DAILY [facility] Last Admin: 05/30/18 10:40 Dose: 1 tab Jbmlb-2-Esnp Ethyl Esters (Lovaza) 1 [facility]m [facility] [place] Last Admin: 05/30/18 12:45 Dose: Not Given Oxycodone/Acetaminophen (Percocet 5/325 Mg Tab) 1 tab PO Q4H PRN PRN Reason: Pain, moderate (4-7) Stop: 06/01/18 10:58 Last Admin: 05/30/18 14:02 Dose: 1 tab Pantoprazole Sodium (Protonix Ec Tab) 40 mg PO DAILY [facility] Last Admin: 05/30/18 10:40 Dose: 40 mg Sevelamer Carbonate (Renvela) 1,600 mg PO TIDCC [facility] Last Admin: 05/30/18 18:09 Dose: Not Given Vitamin B Complex/Vit C/Folic Acid (Nephro-Nehemias) 1 tab PO 0800 [facility] Last Admin: 05/30/18 08:27 Dose: 1 tab - Labs Labs: 05/28/18 06:44 05/28/18 19:17 PT 12.1 SECONDS (9.7-12.2) 05/24/18 06:24 INR 1.1 05/24/18 06:24 APTT 29 SECONDS (21-34) 05/24/18 06:24 Assessment and Plan - Assessment and Plan (Free Text) Assessment: ESRD ANEMIA .HYPERKALEMIA . HTN . OLD CVA . BPH . HYPERLEPEDEMIA C/O CURRENT CARE AWAITING OUT PT HD SPOT
--- NOTE | 2018-05-30 23:16 | PN ---
DATE: 05/30/2018 SUBJECTIVE: The patient is seen today on 05/30/2018. He vomited twice and he is having abdominal pain, scanty bowel movement shoer. OBJECTIVE: VITAL SIGNS: Blood pressure 158/79, temperature 98.3, respiratory rate 20 and pulse 74. HEENT: Pupils equal, reactive to light. Normal-appearing mucosa of the conjunctivae, oropharynx and nasal membrane mucosa. NECK: Supple. No JVD. No carotid bruit. No lymph node. No thyromegaly. CHEST: Lungs, bilateral symmetrical expansion. Good air exchange. No rales, no rhonchi. CARDIOVASCULAR SYSTEM: PMI not localized. S1, S2. No additional sounds. ABDOMEN: Distended with decreased bowel sounds. No organomegaly. No masses. EXTREMITIES: No cyanosis, no clubbing, no edema. DYE LINE OPERATOR: Alert, awake, oriented x2 and the patient has slurred speech and right-sided hemiparesis. CAT scan of the abdomen and pelvis was done and it showed multiple distended loops of proximal and mid small bowel with collapse of the distal small bowel and possible transient point in the right mid to lower abdomen. ASSESSMENT: 1. Partial small bowel obstruction, status post abdominal surgery about 10 years ago, no specifics about it is known at this time. 2. End-stage renal disease, started on hemodialysis. 3. Hypertension. PLAN: We will keep the patient n.p.o., give him IV fluid, and we will do a GI consult and surgical consult and put an NG tube if the patient continues to vomit. Carmella Estrada MD
[2018-05-31] MEDS: Multivitamin Vitamin B Complex (Nephro-Vite) Tab PO SCH (08:18)
--- NOTE | 2018-05-31 09:52 | CP.PCM.CON ---
<Chino Gauthier - Last Filed: 05/31/18 11:45> History of Present Illness - History of Present Illness History of Present Illness: PGY-4 GI Fellow Consult Note Pt is a 72 yo M with ESRD, HTN, CVA (on DAPT), Anemia who was admitted on 05/20/18 for AVF placement in anticipation of HD initiation. After cardiac clearance, he had AVF placement on 05/29/18. GI consulted on 05/30/[address] revealed small bowel obstruction. Pt states he had some sharp, epigastric pain starting the AM of 05/30. He reported an episode of NB/NB emesis with some relief in PM of 05/30. He states last BM with in the AM of 05/29, last flatus was in the evening of 05/29, but states that he recently had flatus in AM of 05/31. Prior to that, bowel movements were normal without any signs of melena nor hematochezia. Never had any EGD nor CSPY before. 12 point ROS negative other than stated above MHx: See above SurgHx: "Abd Surgery" LUE AVF on 05/29/18 Meds: Reviewed in MAR FamHx: Denied family h/o GI problems SocHx: Denied x 3 All: NKDA Past Patient History - Past Medical History & Family History Past Medical History?: Yes - Past Social History Smoking Status: Former Smoker - CARDIAC Hx Hypertension: Yes - PULMONARY Hx Respiratory Disorders: No - NEUROLOGICAL Hx Neurological Disorder: Yes HX Cerebrovascular Accident: Yes (RT side weakness) - HEENT Hx HEENT Problems: No - RENAL Hx Chronic Kidney Disease: Yes Hx Dialysis: Yes (First time to be) Type of Dialysis Access: Right jugular permacath - ENDOCRINE/METABOLIC Hx Endocrine Disorders: No - HEMATOLOGICAL/ONCOLOGICAL Hx Anemia: Yes - MUSCULOSKELETAL/RHEUMATOLOGICAL Hx Musculoskeletal Disorders: No Hx Falls: Yes - GASTROINTESTINAL Hx Gastrointestinal Disorders: No - GENITOURINARY/GYNECOLOGICAL Hx Genitourinary Disorders: No - PSYCHIATRIC Hx Substance Use: No - SURGICAL HISTORY Hx Surgeries: No - ANESTHESIA Hx Anesthesia: Yes Meds Allergies/Adverse Reactions: Allergies Allergy/AdvReac Type Severity Reaction Status Date / Time No Known Allergies Allergy Unverified 05/20/18 11:32 - Medications Medications: Current Medications Acetaminophen (Tylenol 325mg Tab) 650 mg PO [facility] Last Admin: 05/30/18 10:43 Dose: Not Given Doxazosin Mesylate (Cardura) 2 mg PO QAM [facility] Last Admin: 05/30/18 10:40 Dose: 2 mg Epoetin Popeye (Procrit) 10,000 unit IV MWF [facility] Last Admin: 05/29/18 15:01 Dose: 10,000 unit Ergocalciferol (Drisdol 50,000 Intl Units Cap) 1 cap PO QWK [facility] Last Admin: 05/28/18 15:03 Dose: 1 cap Labetalol HCl (Trandate) 200 mg PO BID [facility] Last Admin: 05/23/18 09:13 Dose: 200 mg Labetalol HCl (Trandate) 200 mg PO Q12 [facility] Last Admin: 05/30/18 22:40 Dose: Not Given Magnesium Oxide (Mag-Ox) 400 mg PO QAM [facility] Last Admin: 05/30/18 10:40 Dose: 400 mg Minoxidil (Minoxidil) 2.5 mg PO QAM [facility] Last Admin: 05/30/18 10:42 Dose: 2.5 mg Multivitamins/Minerals (Therapeutic-M Tab) 1 tab PO DAILY [facility] Last Admin: 05/30/18 10:40 Dose: 1 tab Xfpjm-4-Clgv Ethyl Esters (Lovaza) 1 gm PO QAM [facility] Last Admin: 05/30/18 12:45 Dose: Not Given Oxycodone/Acetaminophen (Percocet 5/325 Mg Tab) 1 tab PO Q4H PRN PRN Reason: Pain, moderate (4-7) Stop: 06/01/18 10:58 Last Admin: 05/30/18 14:02 Dose: 1 tab Pantoprazole Sodium (Protonix Ec Tab) 40 mg PO DAILY [facility] Last Admin: 05/30/18 10:40 Dose: 40 mg Sevelamer Carbonate (Renvela) 1,600 mg PO TIDCC [facility] Last Admin: 05/31/18 08:18 Dose: Not Given Vitamin B Complex/Vit C/Folic Acid (Nephro-Nehemias) 1 tab PO 0800 [facility] Last Admin: 05/31/18 08:18 Dose: Not Given Physical Exam - Constitutional Appears: Well, No Acute Distress - Head Exam Head Exam: ATRAUMATIC, NORMAL INSPECTION - Eye Exam Eye Exam: EOMI. absent: Scleral icterus - ENT Exam ENT Exam: Mucous Membranes Dry. absent: Mucous Membranes Moist - Respiratory Exam Respiratory Exam: Clear to Auscultation Bilateral, NORMAL BREATHING PATTERN. absent: Accessory Muscle Use - Cardiovascular Exam Cardiovascular Exam: REGULAR RHYTHM, RRR - GI/Abdominal Exam GI & Abdominal Exam: Distended (mildly), Hypoactive Bowel Sounds, Normal Bowel Sounds, Soft. absent: Bruit, Firm, Guarding, Hernia, Mass, Organomegaly, P ulsatile Mass, Rebound, Rigid, Tenderness - Rectal Exam Rectal Exam: Deferred - Extremities Exam Extremities exam: Positive for: normal inspection, pedal edema (trace) - Neurological Exam Neurological exam: Alert, CN II-XII Intact - Psychiatric Exam Psychiatric exam: Normal Affect, Normal Mood - Skin Skin Exam: Dry, Warm Additional comments: LUE AVF wrapped, R TDC Results - Vital Signs Recent Vital Signs: Last Vital Signs Temp 98.7 F 05/31/18 07:00 Pulse 71 05/31/18 07:00 Resp 20 05/31/18 07:00 BP 122/66 05/31/18 07:00 Pulse Ox 95 05/31/18 07:00 - Labs Result Diagrams: 05/28/18 06:44 05/28/18 19:17 Labs: Laboratory Results - last 24 hr 05/30/18 13:57 Phosphorus 4.6 H Magnesium 1.9 Assessment & Plan - Assessment and Plan (Free Text) Assessment: 72 yo WM with recent initiation of HD for ESRD with AVF placement this admission now with n/v and signs of SBO on imaging. # Partial Small Bowel Obstruction: Likely multifactorial from adhesions (h/o abd surgery) and analgesia and sedentary status in hospital. Pt already reporting flatus, no BM in > 24 hrs. # CRC Screen: Pt overdue without any prior CSPY Plan: - NPO - IVF - Optimize electrolytes - Agree with suppository - NG if symptoms worsen - Plan for liquid diet once stooling again - OP CSPY Pt seen and examined with Dr. Tipton. Please see attestation for further recs/changes. Chino Gauthier, PGY-4 <Danny Tipton - Last Filed: 05/31/18 14:58> Meds - Medications Medications: Current Medications Acetaminophen (Tylenol 325mg Tab) [facility] [place] Admin: 05/31/18 10:02 Dose: Not Given Doxazosin Mesylate (Cardura) 2 mg PO QAM [facility] Last Admin: 05/31/18 10:01 Dose: Not Given Epoetin Popeye (Procrit) 10,000 unit IV MWF [facility] Last Admin: 05/29/18 15:01 Dose: 10,000 unit Ergocalciferol (Drisdol 50,000 Intl Units Cap) 1 cap PO QWK [facility] Last Admin: 05/28/18 15:03 Dose: 1 cap Labetalol HCl (Trandate) 200 mg PO BID [facility] Last Admin: 05/23/18 09:13 Dose: 200 mg Labetalol HCl (Trandate) 200 mg PO Q12 [facility] Last Admin: 05/31/18 10:02 Dose: Not Given Magnesium Oxide (Mag-Ox) 400 mg PO QAM [facility] Last Admin: 05/31/18 10:01 Dose: Not Given Minoxidil (Minoxidil) 2.5 mg PO QAM [facility] Last Admin: 05/31/18 10:01 Dose: Not Given Multivitamins/Minerals (Therapeutic-M Tab) 1 tab PO DAILY [facility] Last Admin: 05/31/18 10:01 Dose: Not Given Ykgvl-4-Mpqg Ethyl Esters (Lovaza) 1 gm PO QAM [facility] Last Admin: 05/31/18 10:01 Dose: Not Given Oxycodone/Acetaminophen (Percocet 5/325 Mg Tab) 1 tab PO Q4H PRN PRN Reason: Pain, moderate (4-7) Stop: 06/01/18 10:58 Last Admin: 05/30/18 14:02 Dose: 1 tab Pantoprazole Sodium (Protonix Ec Tab) 40 mg PO DAILY [facility] Last Admin: 05/31/18 10:01 Dose: Not Given Sevelamer Carbonate (Renvela) 1,600 mg PO TIDCC [facility] Last Admin: 05/31/18 11:25 Dose: Not Given Vitamin B Complex/Vit C/Folic Acid (Nephro-Nehemias) 1 tab PO 0800 [facility] Last Admin: 05/31/18 08:18 Dose: Not Given Results - Vital Signs Recent Vital Signs: Last Vital Signs Temp 98.7 F 05/31/18 07:00 Pulse 71 05/31/18 07:00 Resp 20 05/31/18 07:00 BP 122/66 05/31/18 07:00 Pulse Ox 95 05/31/18 07:00 - Labs Result Diagrams: 05/28/18 06:44 05/28/18 19:17 Attending/Attestation - Attestation I have personally seen and examined this patient.: Yes I have fully participated in the care of the patient.: Yes I have reviewed all pertinent clinical information: Yes Notes (Text): 05/31/18 14:54 I have seen and examined patient with GI fellow. Agree with above documentation with the following additions. In brief, this is a 72 year old male with history of ESRD, HTN, CVA, cognitive dysfunction, anemia who initially presented to hospital for fistula placement and initiation of dialysis. GI called for evaluation of abdominal pain and vomiting. Patient developed sudden onset epigastric pain yesterday followed by nausea, vomiting and subsequent workup with imaging revealed small bowel obstruction. Today he feels well and denies abdominal pain, no recurrent episodes of vomiting, and is passing gas. His last bowel movement was 2 days ago. He denies similar prior episodes, no prior endoscopic evaluation. ESRD HTN CVA Cognitive dysfunction Anemia, chronic disease Abdominal pain - small bowel obstruction - NPO - Continue with IVF hydration, supportive care - Trial of dulcolax suppository therapy, observation, serial abdominal exam - Follow up surgical recommendations - Patient would benefit from elective outpatient EGD/colonoscopy following resolution of acute symptoms. Will continue to monitor patient clinical course.
[2018-05-31] MEDS: Omega-3-Acid Ethyl Esters 1 GM Cap PO SCH (10:01)
[2018-05-31] MEDS: Pantoprazole 40 mg EC Tab PO SCH (10:01)
[2018-05-31] MEDS: Magnesium Oxide 400 mg Tab UD PO SCH (10:01)
[2018-05-31] MEDS: Multivitamin With Minerals Tab PO SCH (10:01)
[2018-05-31 16:34] LABS: HEMOGLOBIN 8.5 g/dL (12.0-18.0); MEAN CELL VOLUME 84.6 fL (80.0-94.0); MEAN CORPUSCULAR HEMOGLOBIN 27.1 pg (27.0-31.0); MEAN CORPUSCULAR HGB CONC 32.1 g/dL (33.0-37.0); MEAN PLATELET VOLUME 7.5 fL (7.2-11.7); RBC 3.13 Mil/uL (4.40-5.90); RED CELL DISTRIBUTION WIDTH 15.7 % (11.5-14.5); WHITE BLOOD COUNT 7.5 K/uL (4.8-10.8)
[2018-05-31] MEDS: Epoetin Alfa 10,000 unit/ml Dialysis IV SCH (17:36)
--- NOTE | 2018-05-31 21:05 | CP.PCM.PN ---
Subjective - Date & Time of Evaluation Date of Evaluation: 05/31/18 Time of Evaluation: 14:00 - Subjective Subjective: SEEEN ON RENAL F/U SEEN ON HD FEELS MUCH BETER GI CONSULT APPRECIETED SW CALLED ME THAT PT NOW HAS OUT PT HD SPOT AT [place] TO START NEXT WEEK T T S VSS Objective - Vital Signs/Intake and Output Vital Signs (last 24 hours): Temp Pulse Resp BP Pulse Ox 97.4 F L 67 18 174/81 H 95 05/31/18 17:40 05/31/18 17:40 05/31/18 17:40 05/31/18 17:40 05/31/18 17:40 Intake and Output: 05/31/18 06/01/18 18:59 06:59 Intake Total 300 Output Total 300 Balance 0 - Medications Medications: Current Medications Acetaminophen (Tylenol 325mg Tab) 650 mg PO QAM [facility] Last Admin: 05/31/18 10:02 Dose: Not Given D[facility]azosin [facility] (Cardura) [facility] [place] Admin: 05/31/18 10:01 Dose: Not Given Epoetin Popeey (Procrit) 10,000 unit IV MWF [facility] Last Admin: 05/31/18 17:36 Dose: 10,000 unit Ergocalciferol (Drisdol 50,000 Intl Units Cap) 1 cap PO QWK [facility] Last Admin: 05/28/18 15:03 Dose: 1 cap Labetalol HCl (Trandate) 200 mg PO BID [facility] Last Admin: 05/23/18 09:13 Dose: 200 mg Labetalol HCl (Trandate) 200 mg PO Q12 [facility] Last Admin: 05/31/18 10:02 Dose: Not Given Magnesium Oxide (Mag-Ox) 400 mg PO QAM [facility] Last Admin: 05/31/18 10:01 Dose: Not Given Minoxidil (Minoxidil) 2.5 mg PO QAM [facility] Last Admin: 05/31/18 10:01 Dose: Not Given Multivitamins/Minerals (Therapeutic-M Tab) 1 tab PO DAILY [facility] Last Admin: 05/31/18 10:01 Dose: Not Given [id number] Ethyl Esters (Lovaza) 1 gm PO QAM [facility] Last Admin: 05/31/18 10:01 Dose: Not Given Oxycodone/Acetaminophen (Percocet 5/325 Mg Tab) 1 tab PO Q4H PRN PRN Reason: Pain, moderate (4-7) Stop: 06/01/18 10:58 Last Admin: 05/30/18 14:02 Dose: 1 tab Pantoprazole Sodium (Protonix Ec Tab) 40 mg PO DAILY [facility] Last Admin: 05/31/18 10:01 Dose: Not Given Sevelamer Carbonate (Renvela) 1,600 mg PO TIDCC [facility] Last Admin: 05/31/18 18:48 Dose: 1,600 mg Vitamin B Complex/Vit C/Folic Acid (Nephro-Nehemias) 1 tab PO 0800 [facility] Last Admin: 05/31/18 08:18 Dose: Not Given - Labs Labs: 05/31/18 16:31 05/28/18 19:17 PT 12.1 SECONDS (9.7-12.2) 05/24/18 06:24 INR 1.1 05/24/18 06:24 APTT 29 SECONDS (21-34) 05/24/18 06:24 Assessment and Plan - Assessment and Plan (Free Text) Assessment: ESRD ON HD M W F ANEMIA OF CKD .. ON EPO ELECTROLYTES ABN .. OK MMP P : FRO HD IN AN TEU PT IS CLEARED FROM RENAL STANDPOIT FOR D/C AFETR HIS HD TOMORROW NEEDS GI CLEARANCE PROIR TO POSSIBLE D/C PT WAS SEEN ON HD .. HE WAS REASSURED SURYA KEEP CLOSE EYE ON PT
[2018-06-01] MEDS: Multivitamin Vitamin B Complex (Nephro-Vite) Tab PO SCH (09:46)
[2018-06-01] MEDS: Multivitamin With Minerals Tab PO SCH ×2 (09:48→13:10)
[2018-06-01] MEDS: Omega-3-Acid Ethyl Esters 1 GM Cap PO SCH ×2 (09:48→13:11)
[2018-06-01] MEDS: Magnesium Oxide 400 mg Tab UD PO SCH ×2 (09:48→13:10)
[2018-06-01] MEDS: Pantoprazole 40 mg EC Tab PO SCH ×2 (09:48→13:11)
--- NOTE | 2018-06-01 11:07 | CP.PCM.PN ---
<Gwen Escamilla - Last Filed: 06/01/18 11:02> Subjective - Date & Time of Evaluation Date of Evaluation: 06/01/18 Time of Evaluation: 09:00 - Subjective Subjective: GI Fellow PGY5 Progress Note Pt seen and evaluated in HD, he feels well and denies abdominal pain, no recurrent episodes of vomiting, and is passing gas. His last bowel movement was 2 days ago.Tolerating liquid diet. ROS: A 12pt ROS was negative except as above Objective - Vital Signs/Intake and Output Vital Signs (last 24 hours): Temp Pulse Resp BP Pulse Ox 98 F 75 18 172/88 H 96 06/01/18 09:15 06/01/18 09:15 06/01/18 09:15 06/01/18 10:45 06/01/18 09:15 - Medications Medications: Current Medications Acetaminophen (Tylenol 325mg Tab) [facility] [place] Admin: 06/01/18 09:47 Dose: Not Given Doxazosin Mesylate (Cardura) 2 mg PO [facility] Last Admin: 06/01/18 09:48 Dose: Not Given Epoetin Popeye (Procrit) 10,000 unit IV MWF [facility] Last Admin: 05/31/18 17:36 Dose: 10,000 unit Ergocalciferol (Drisdol 50,000 Intl Units Cap) 1 cap PO QWK [facility] Last Admin: 05/28/18 15:03 Dose: 1 cap Labetalol HCl (Trandate) 200 mg PO BID [facility] Last Admin: 05/23/18 09:13 Dose: 200 mg Labetalol HCl (Trandate) 200 mg PO Q12 [facility] Last Admin: 06/01/18 09:47 Dose: Not Given Magnesium Oxide (Mag-Ox) 400 [facility] [place] Admin: 06/01/18 09:48 Dose: Not Given Minoxidil (Minoxidil) 2.5 mg PO [facility] Last Admin: 06/01/18 09:48 Dose: Not Given Multivitamins/Minerals (Therapeutic-M Tab) 1 tab PO DAILY [facility] Last Admin: 06/01/18 09:48 Dose: Not Given [id number]-[id number] Ethyl Esters (Lovaza) 1 [facility] [place] Admin: 06/01/18 09:48 Dose: Not Given Pantoprazole Sodium (Protonix Ec Tab) 40 mg PO DAILY [facility] Last Admin: 06/01/18 09:48 Dose: Not Given Sevelamer Carbonate (Renvela) 1,600 mg PO TIDCC [facility] Last Admin: 06/01/18 09:47 Dose: Not Given Vitamin B Complex/Vit C/Folic Acid (Nephro-Nehemias) 1 tab PO 0800 [facility] Last Admin: 06/01/18 09:46 Dose: Not Given - Labs Labs: 05/31/18 16:31 05/28/18 19:17 PT 12.1 SECONDS (9.7-12.2) 05/24/18 06:24 INR 1.1 05/24/18 06:24 APTT 29 SECONDS (21-34) 05/24/18 06:24 - Constitutional Appears: Non-toxic, No Acute Distress - Head Exam Head Exam: ATRAUMATIC, NORMAL INSPECTION, NORMOCEPHALIC - Eye Exam Eye Exam: EOMI, Normal appearance, PERRL - ENT Exam ENT Exam: Mucous Membranes Moist - GI/Abdominal Exam GI & Abdominal Exam: Soft, Normal Bowel Sounds. absent: Distended, Tenderness, Organomegaly - Neurological Exam Neurological Exam: Alert, Awake, Oriented x3 - Psychiatric Exam Psychiatric exam: Normal Affect, Normal Mood - Skin Skin Exam: Dry, Normal Color, Warm Assessment and Plan - Assessment and Plan (Free Text) Assessment: This is a 72 year old male with history of ESRD, HTN, CVA, cognitive dysfunction, anemia who initially presented to hospital for fistula placement and initiation of dialysis. GI called for evaluation of abdominal pain and vomiting. Imaging revealed small bowel obstruction. 1. Abdominal pain - small bowel obstruction 2. Anemia, chronic disease 3. ESRD 4. HTN 5. CVA 6. Cognitive dysfunction - Continue supportive care - Tolerating liquid diet - Serial abdominal exams - Partial SBO resolving - Follow up surgical recommendations - Patient would benefit from elective outpatient EGD/colonoscopy following resolution of acute symptoms <Tejinder Cunningham - Last Filed: 06/01/18 11:30> Objective - Vital Signs/Intake and Output Vital Signs (last 24 hours): Temp Pulse Resp BP Pulse Ox 98 F 75 18 172/88 H 96 06/01/18 09:15 06/01/18 09:15 06/01/18 09:15 06/01/18 10:45 06/01/18 09:15 - Medications Medications: Current Medications Acetaminophen (Tylenol 325mg Tab) 650 mg PO QAM [facility] Last Admin: 06/01/18 09:47 Dose: Not Given Doxazosin Mesylate (Cardura) 2 mg PO QAM [facility] Last Admin: 06/01/18 09:48 Dose: Not Given Epoetin Popeye (Procrit) 10,000 unit IV MWF [facility] Last Admin: 05/31/18 17:36 Dose: 10,000 unit Ergocalciferol (Drisdol 50,000 Intl Units Cap) 1 cap PO QWK [facility] Last Admin: 05/28/18 15:03 Dose: 1 cap Labetalol HCl (Trandate) 200 mg PO BID [facility] Last Admin: 05/23/18 09:13 Dose: 200 mg Labetalol HCl (Trandate) 200 mg PO Q12 [facility] Last Admin: 06/01/18 09:47 Dose: Not Given Magnesium Oxide (Mag-Ox) 400 mg PO QAM [facility] Last Admin: 06/01/18 09:48 Dose: Not Given Minoxidil (Minoxidil) 2.[facility] [place] Last Admin: 06/01/18 09:48 Dose: Not Given Multivitamins/Minerals (Therapeutic-M Tab) 1 tab PO DAILY [facility] Last Admin: 06/01/18 09:48 Dose: Not Given [id number]-3-[id number] Ethyl Esters (Lovaza) 1 gm PO QAM [facility] Last Admin: 06/01/18 09:48 Dose: Not Given Pantoprazole Sodium (Protonix Ec Tab) 40 mg PO DAILY [facility] Last Admin: 06/01/18 09:48 Dose: Not Given Sevelamer Carbonate (Renvela) 1,600 mg PO TIDCC [facility] Last Admin: 06/01/18 09:47 Dose: Not Given Vitamin B Complex/Vit C/Folic Acid (Nephro-Nehemias) 1 tab PO 0800 [facility] Last Admin: 06/01/18 09:46 Dose: Not Given - Labs Labs: 05/31/18 16:31 05/28/18 19:17 PT 12.1 SECONDS (9.7-12.2) 05/24/18 06:24 INR 1.1 05/24/18 06:24 APTT 29 SECONDS (21-34) 05/24/18 06:24 Attending/Attestation - Attestation I have personally seen and examined this patient.: Yes I have fully participated in the care of the patient.: Yes I have reviewed all pertinent clinical information, including history, physical exam and plan: Yes Notes (Text): 06/01/18 11:26 Chart reviewed. The pt was seen, examined and discussed with Dr. Escamilla. Agree with findings and assessment as documented above. 06/01/18 11:29
[2018-06-01 15:24] VITALS: BP 138/75; PULSE 73; RESP 20; TEMP 98.8; O2SAT 95
--- NOTE | 2018-06-02 04:36 | PN ---
DATE: 05/31/2018 Late entry for daily visit done on 05/31/2018. SUBJECTIVE: The patient was seen on 05/31/2018 during hemodialysis. No cardiopulmonary distress was noticed. PHYSICAL EXAMINATION: VITAL SIGNS: Blood pressure was 161/53, temperature 98.3, respiratory rate 20, and pulse 70. HEENT: Pupils equal, and reactive to light. Normal-appearing mucosa of the conjunctivae, oropharynx, and nasal membrane mucosa. NECK: Supple. No JVD. No carotid bruit. No lymph node. No thyromegaly. CHEST AND LUNGS: Bilateral symmetrical expansion. Good air exchange. No rales, no rhonchi. CARDIOVASCULAR SYSTEM: PMI not localized. S1, S2. No additional sounds. ABDOMEN: Normoactive bowel sounds. No tenderness. No organomegaly. No masses. EXTREMITIES: No cyanosis, no clubbing, no edema. OPERATOR SPECIALIST COMMUNICATIONS: Alert, awake, and oriented x2, right-sided hemiparesis. ASSESSMENT: 1. End-stage renal disease, on hemodialysis, started on hemodialysis this admission. 2. Cerebrovascular accident with right-sided hemiparesis. 3. Hypertension. 4. Status post partial intestinal obstruction, which resolved. PLAN: Continue current medications and the patient is scheduled to go home in the morning to have dialysis three times a week. Carmella Estrada MD
--- NOTE | 2018-06-02 18:55 | DS ---
DISCHARGE SUMMARY REASON FOR ADMISSION: A 72-year-old male with history of multiple medical problems, was admitted with uremic manifestations and to start hemodialysis. COURSE OF HOSPITALIZATION: The patient was admitted to telemetry floor and he was started on hemodialysis after an insertion of tunneled catheter. The patient also had an AV fistula placed after cleared by Cardiology. The patient did well and hospital stay was complicated with partial intestinal obstruction that resolved spontaneously. The patient went home on current medications after obtaining a three times a week schedule of the hemodialysis. [facility] MD Sean
== END 2018-06-01 16:38 | disposition home or self-care (01) | DRG 673 ==
LOC: C.ER 11:02 → C.9E 14:07 → C.6T 20:59
PROVIDERS: ADMIT Internal Medicine; ATTEND Internal Medicine
PROC: 0JH63XZ Insertion of Tunneled Vascular Access Device into Chest Subcutaneous Tissue and Fascia, Percutaneous Approach (ICD-10-PCS; 2018-05-20)
PROC: 02HV33Z Insertion of Infusion Device into Superior Vena Cava, Percutaneous Approach (ICD-10-PCS; 2018-05-20)
PROC: B518ZZA Fluoroscopy of Superior Vena Cava, Guidance (ICD-10-PCS; 2018-05-20)
PROC: B543ZZA Ultrasonography of Right Jugular Veins, Guidance (ICD-10-PCS; 2018-05-20)
PROC: 5A1D70Z Performance of Urinary Filtration, Intermittent, Less than 6 Hours Per Day (ICD-10-PCS; 2018-05-21)
PROC: 30233N1 Transfusion of Nonautologous Red Blood Cells into Peripheral Vein, Percutaneous Approach (ICD-10-PCS; 2018-05-21)
PROC: 5A1D70Z Performance of Urinary Filtration, Intermittent, Less than 6 Hours Per Day (ICD-10-PCS; 2018-05-22)
PROC: 5A1D70Z Performance of Urinary Filtration, Intermittent, Less than 6 Hours Per Day (ICD-10-PCS; 2018-05-24)
PROC: 5A1D70Z Performance of Urinary Filtration, Intermittent, Less than 6 Hours Per Day (ICD-10-PCS; 2018-05-27)
PROC: 5A1D70Z Performance of Urinary Filtration, Intermittent, Less than 6 Hours Per Day (ICD-10-PCS; 2018-05-29)
PROC: 03180ZD Bypass Left Brachial Artery to Upper Arm Vein, Open Approach (ICD-10-PCS; principal; 2018-05-29 09:30)
PROC: 5A1D70Z Performance of Urinary Filtration, Intermittent, Less than 6 Hours Per Day (ICD-10-PCS; 2018-05-31)
PROC: 5A1D70Z Performance of Urinary Filtration, Intermittent, Less than 6 Hours Per Day (ICD-10-PCS; 2018-06-01)
DX: I12.0 Hypertensive chronic kidney disease with stage 5 chronic kidney disease or end stage renal disease (principal); N18.6 End stage renal disease; G81.91 Hemiplegia, unspecified affecting right dominant side; K56.600 Partial intestinal obstruction, unspecified as to cause; I69.351 Hemiplegia and hemiparesis following cerebral infarction affecting right dominant side; E87.2 Acidosis; D63.1 Anemia in chronic kidney disease; E87.5 Hyperkalemia; G89.29 Other chronic pain; M54.9 Dorsalgia, unspecified; E78.5 Hyperlipidemia, unspecified; N40.0 Benign prostatic hyperplasia without lower urinary tract symptoms; Z87.891 Personal history of nicotine dependence